=== PATIENT | female | born 1970 | race Caucasian/White ===

== ENCOUNTER → 2017-01-31 | Outpatient (POV) | payer MEDICAID, SELFPAY | PROVIDERS: Visit Provider Internal Medicine | DX: I10 Essential (primary) hypertension (principal); E78.5 Hyperlipidemia, unspecified; G47.00 Insomnia, unspecified | CPT/HCPCS: 93005 ==

== ENCOUNTER → 2017-02-02 | Outpatient (CLI) | payer MEDICAID, SELFPAY | PROVIDERS: Family Provider Emergency Medicine; Visit Provider Orthopaedic Surgery | DX: M25.562 Pain in left knee (principal) | CPT/HCPCS: 73564 ==

== ENCOUNTER → 2017-03-13 15:14 | Outpatient (POV) | payer MEDICAID, SELFPAY ==
[2017-03-13 15:30] VITALS: BP 119/73; PULSE 80; RESP 20; O2SAT 92; BMI 31.3
[2017-03-13 15:43] VITALS: BP 105/61; PULSE 75; RESP 20; O2SAT 94
--- NOTE | 2017-03-13 15:46 | HMH.PMPROC ---
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 She is doing well with her intrathecal hydromorphone/bupivacaine pain pump. She is currently going at 1.5 mg per day. Today she is complaining of some bilateral lumbar radicular symptoms. Her stimulator is not turned on. It has been an MRI mode for several weeks. I have counseled her on utilizing her stimulator and hernia back on as this will help her lumbar radicular symptoms. We will not renew her Soma and Klonopin today. This was due to previous excessive drowsiness. We will refill her pump and continue her at 1.5 mg per day. We will increase concentrations to Dilaudid 10 mg/mL and bupivacaine 10 mg per ml. Procedure Details:: Informed consent was obtained and the risks and benefits of the procedure was explained to the patient. The patient was taken to the procedure room. The pump was interrogated. The area over the pump was prepped using ChloraPrep. The pump was accessed with a 22-gauge needle. Approximately 3 mL's of the intrathecal solution was withdrawn and discarded. The pump was then refilled with 20 mL's of intrathecal 20 mL of intrathecal hydromorphone 10 mg/mL plus bupivacaine 10 mg per ml. The pump was interrogated and the infusion was continued at 1.5 mg per day. The patient tolerated the procedure well with no complication. Plan and Disposition:: We will follow-up with her in 3 months at her next pump refill. She is to turn her stimulator back on to help with her leg pain. If she has any problems or questions she is to call us in the pain clinic.
[2017-03-13 15:50] VITALS: BP 118/70; PULSE 80; RESP 20; O2SAT 93
[2017-03-13 19:08] LABS: Amphetamine/Metha Screen,Urine Negative ng/mL (<1000); Barbiturates Screen,Urine Negative ng/mL (<200); Benzodiazepines Screen,Urine Negative ng/mL (200); Cannabinoid Screen,Urine Negative ng/mL (<50); Cocaine Screen,Urine Negative ng/g (<300); Methadone Screen,Urine Negative ng/mL (<300); Opiate Screen,Urine Positive ng/mL (<300); Phencyclidine Screen,Urine Negative ng/mL (<25)
[2017-03-26 02:07] LABS: Codeine Negative (Cutoff=100); Hydrocodone Negative (Cutoff=100); Hydromorphone Positive (.); Morphine Negative (Cutoff=100)
[2017-03-26 21:18] LABS: Opiates Positive (.)
== END ==
PROVIDERS: Family Provider Emergency Medicine; PCP Emergency Medicine; Visit Provider Anesthesiology
DX: M54.16 Radiculopathy, lumbar region (principal)
CPT/HCPCS: 95991; 80305; 80361; G0480

== ENCOUNTER 2017-04-05 14:28 | Emergency (ER) | payer MEDICAID, SELFPAY ==
--- NOTE | 2017-04-05 | NVE_ITS ---
Venous Exam Indications: 729.5 Pain in limb. IMPRESSIONS 1. There is no evidence of significant Reflux. 2. No evidence of deep or superficial vein thrombosis involving the right lower extremity and left lower extremity History: Bilateral lower extremity pain. PMH: Deep vein thrombosis. Patient states she had a blood clot in right lower extremity 03/2016. She does Lovenox injections. Risk factors: Current tobacco use. Hypertension. Complete lower extremity venous duplex evaluation. Doppler flow study including spectral analysis, color and turner scale imaging. Location: Emergency department. Patient status: Emergency department. CRITICAL FINDINGS - Reported to: Sana Perkins RN ER - Read back and verified. - 04/05/17 - 17:45 - Bilateral lower extremity venous dopplers negative for DVT or SVT Tables: Venous flow and imaging: + +-------+ + Location Overall Flow properties + +-------+ + Right common femoral Patent Normal phasicity; spontaneous; normal augmentation; compressible + +-------+ + Right saphenofemoral junction Patent Compressible + +-------+ + Right profunda femoral Patent Compressible + +-------+ + Right femoral Patent Normal phasicity; spontaneous; normal augmentation; compressible; no reflux + +-------+ + Right greater saphenous Patent Normal phasicity; spontaneous; normal augmentation; compressible + +-------+ + Right popliteal Patent Normal phasicity; spontaneous; normal augmentation; compressible + +-------+ + Right posterior tibial Patent Compressible + +-------+ + Right peroneal Patent Compressible + +-------+ + Right gastrocnemius Patent Compressible + +-------+ + Right soleal Patent Compressible + +-------+ + Left common femoral Patent Normal phasicity; spontaneous; normal augmentation; compressible + +-------+ + Left saphenofemoral junction Patent Compressible + +-------+ + Left profunda femoral Patent Compressible + +-------+ + Left femoral Patent Normal phasicity; spontaneous;
[2017-04-05 14:29] VITALS: BP 113/75; PULSE 77; RESP 18; TEMP 36.9; O2SAT 97; BMI 31.3
--- NOTE | 2017-04-05 16:37 | HMH.EDGENADL ---
ED Disposition Clinical Impression: Peripheral edema Chronic leg pain Qualifiers: Laterality: bilateral Qualified Code(s): M79.604 - Pain in right leg; M79.605 - Pain in left leg; G89.29 - Other chronic pain Disposition: Home, Self-Care Condition on Discharge: Good Additional Instructions: Call your primary care provider tomorrow and arrange follow-up appointment. Referrals: Stalin Ramirez MD [Primary Care Provider] - - Critical Care Critical Care Time: No Attestation: On 04/05/17, the high probability of a clinically significant, sudden or life threatening deterioration of the following system(s) required my full and direct attention, intervention and personal management. The time I documented below is in addition to time spent performing reported procedures but includes the following listed in this critical care notation. Medical Decision Making Vital Signs: 04/05/17 14:29 04/05/17 16:42 04/05/17 16:59 Temperature 98.4 F Temperature Source Oral Pulse Rate [Right Brachial] 77 70 66 Respiratory Rate 18 16 16 Blood Pressure [Right Arm] 113/75 127/75 127/75 Blood Pressure Mean [Right Arm] 87 92 92 Blood Pressure Source [Right Arm] Automatic Cuff Automatic Cuff Blood Pressure Position [Right Arm] Sitting Sitting 02 Sat by Pulse Oximetry 97 97 99 Oxygen Delivery Method Room Air Room Air Room Air - US Data US Images: Lower Extremity ED US Reviewed: Yes: I have viewed radiologist's interpretation Findings Narrative: Negative bilaterally for DVT - Loi Inquiry Pt receiving controlled substance: No General Adult HPI - General Chief complaint: PAIN Stated complaint: pain in legs trouble walking Mode of Arrival: Ambulatory Limitations: No Limitations Description of Symptoms (Recalled from ER Triage Doc. by RN): Pt reports has been having pain in BLE since march of 2016, pt reports was treated for blood clots in RLE in march of 2016, pt reports takes takes Lovenox injections since MAR 2016. Pt reports pain is from jessy knees down to feet. - History of Present Illness HPI narrative: The patient complains of chronic pain and swelling in her legs. She says that she was diagnosed with a blood clot in her leg in March 2016. Since then she has had episodic pain in both of her legs from the knees down circumferentially along with swelling that usually lasts a couple of weeks and eventually goes away taking Motrin. She says she has mentioned to it to her primary care physician, but nothing has been done about it. She currently has symptoms again for the past 2 weeks that will not go away. She is concerned that she has a recurrence of blood clots in her legs and that she needs a Doppler. She has been treated with Lovenox 150 mg daily since she was diagnosed with a blood clot in March of last year. Has chronic back pain, seeing Dr. Torrez. Has chronic bilateral knee pain, getting injections into her right knee by orthopedics. - Related Data Home Medications Medication Instructions Recorded Confirmed amitriptyline 50 mg tablet 50 mg PO BID 02/16/17 atorvastatin 20 mg tablet 20 mg PO QDAY 02/16/17 citalopram 20 mg tablet 20 mg PO QDAY 02/16/17 enoxaparin 150 mg/mL subcutaneous 150 mg SUB-Q ONCE 02/16/17 syringe metoprolol succinate ER 50 mg 50 mg PO QDAY 02/16/17 tablet,extended release 24 hr tizanidine 4 mg tablet 4 mg PO Q8H 02/16/17 quetiapine 100 mg tablet 200 mg PO QDAY tab 03/06/17 Allergies Allergy/AdvReac Type Severity Reaction Status Date / Time butorphanol [From STADOL] Allergy Unknown UNKNOWN Unverified 02/16/17 11:14 Penicillins [PENICILLINS] Allergy Unknown UNKNOWN Unverified 02/16/17 11:14 [facility] History I have reviewed the patient's past medical history: Yes Medical History: 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
[2017-04-05 16:42] VITALS: BP 127/75; PULSE 70; RESP 16; O2SAT 97
[2017-04-05 16:59] VITALS: BP 127/75; PULSE 66; RESP 16; O2SAT 99
[2017-04-05 18:32] VITALS: BP 134/80; PULSE 73; RESP 18; TEMP 36.7; O2SAT 99
== END 2017-04-05 18:32 | disposition home or self-care (01) ==
PROVIDERS: Emergency Provider Emergency Medicine; Family Provider Emergency Medicine; PCP Emergency Medicine
DX: R60.9 Edema, unspecified (principal); M79.604 Pain in right leg; M79.605 Pain in left leg; G89.29 Other chronic pain; Z79.899 Other long term (current) drug therapy; Z88.0 Allergy status to penicillin; Z88.6 Allergy status to analgesic agent; M79.7 Fibromyalgia; F17.210 Nicotine dependence, cigarettes, uncomplicated; Z86.718 Personal history of other venous thrombosis and embolism; Z86.14 Personal history of Methicillin resistant Staphylococcus aureus infection
CPT/HCPCS: 93970; 99282

== ENCOUNTER → 2017-06-09 15:23 | Outpatient (CLI) | payer MEDICAID, SELFPAY ==
--- NOTE | 2017-06-09 15:28 | NVE_ITS ---
Venous Exam Indications: 729.5 Pain in limb. IMPRESSIONS No evidence of deep or superficial vein thrombosis involving the right lower extremity Right lower extremity venous duplex evaluation. Doppler flow study including spectral analysis, color and turner scale imaging. Location: Vascular laboratory. Patient status: Outpatient. CRITICAL FINDINGS - Reported to: ALLISON SORTO - Read back and verified. - 06/09/17 - 1545 - NONE Tables: Venous flow and imaging: + +-------+ + Location Overall Flow properties + +-------+ + Right common femoral Patent Normal phasicity; spontaneous; normal augmentation; compressible + +-------+ + Right saphenofemoral junction Patent Compressible + +-------+ + Right profunda femoral Patent Compressible + +-------+ + Right femoral Patent Normal phasicity; spontaneous; normal augmentation; compressible + +-------+ + Right greater saphenous Patent Normal phasicity; spontaneous; normal augmentation; compressible + +-------+ + Right popliteal Patent Normal phasicity; spontaneous; normal augmentation; compressible + +-------+ + Right posterior tibial Patent Compressible + +-------+ + Right peroneal Patent Compressible + +-------+ + Right gastrocnemius Patent Compressible + +-------+ + Right soleal Patent Compressible + +-------+ + (Report amended ) Electronically signed by: Mike Lopez [id number]
== END ==
PROVIDERS: PCP Nurse Practitioner Family; Visit Provider Nurse Practitioner Family
DX: M79.604 Pain in right leg (principal)
CPT/HCPCS: 93971

== ENCOUNTER → 2017-06-12 14:52 | Outpatient (POV) | payer MEDICAID, SELFPAY ==
[2017-06-12 15:05] VITALS: BP 133/64; PULSE 71; RESP 18; TEMP 36.6; O2SAT 98; BMI 39.5
--- NOTE | 2017-06-12 15:20 | P.CONS_ITS ---
[facility] Pain Management SOAP Note Subjective:: Patient is a pleasant 47-year-old white female who currently has an intrathecal hydromorphone/bupivacaine pump going at 1.5 mg per day. She is having some increasing leg pain. She is not able to have her knee surgery because of being on a blood thinner and risk of blood clots. She still has swelling in her knee. Her stimulator has not been turned on since her last MRI which was 3-4 months ago. She is having some increasing leg pain which is probably because she never turned her stimulator back on. I have encouraged her to turn her stimulator on. We will have the [employer] rep come and interrogate her stimulator to optimize coverage. We will also increase bupivacaine in her intrathecal infusion to help with her increased pain symptoms. Objective:: Alert and oriented ?3 no acute distress. Patient has an antalgic gait. Motor strength of the lower extremities is 5/5. There is no gross sensory deficit. Intrathecal hydromorphone/bupivacaine infusion currently is going at 1.5 mg per day. Assessment:: Degenerative disc disease of lumbar spine with lumbar radiculopathy symptoms. Plan:: At her next pain pump refill. We will increase her intrathecal hydromorphone/ bupivacaine infusion to 10 mg per male hydromorphone and 10 mg per male bupivacaine to go at 1.5 mg per day. Will also call the [employer] sales representative to interrogate her spinal cord stimulator to turn it back on and optimize coverage down both legs.
== END ==
PROVIDERS: Family Provider Emergency Medicine; PCP Nurse Practitioner Family; Visit Provider Anesthesiology
DX: M54.16 Radiculopathy, lumbar region (principal)
CPT/HCPCS: 99212

== ENCOUNTER → 2017-06-12 15:33 | Outpatient (CLI) | payer MEDICAID, SELFPAY ==
[2017-06-12 17:59] LABS: Amphetamine/Metha Screen,Urine Negative ng/mL (<1000); Barbiturates Screen,Urine Negative ng/mL (<200); Benzodiazepines Screen,Urine Positive ng/mL (200); Cannabinoid Screen,Urine Negative ng/mL (<50); Cocaine Screen,Urine Negative ng/g (<300); Methadone Screen,Urine Negative ng/mL (<300); Opiate Screen,Urine Positive ng/mL (<300); Phencyclidine Screen,Urine Negative ng/mL (<25)
[2017-06-21 12:18] LABS: Codeine Negative (Cutoff=100); Hydrocodone Negative (Cutoff=100); Hydromorphone Positive (.); Morphine Negative (Cutoff=100)
[2017-06-22 06:18] LABS: Opiates Positive (.)
== END ==
PROVIDERS: Visit Provider Anesthesiology
DX: Z79.899 Other long term (current) drug therapy (principal)
CPT/HCPCS: 80305; 80361; 80365; G0480

== ENCOUNTER → 2017-08-15 15:26 | Outpatient (CLI) | payer MEDICAID, SELFPAY ==
--- NOTE | 2017-08-15 15:29 | XR_ITS ---
XR knee RT 3V HISTORY: ITS.REASON: RT KNEE PAIN ORDERING PHYSICIAN: Maria Del Carmen Garibay PATIENT AGE: 47 years COMPARISON: 08/24/2016 FINDINGS: There is osteosclerosis along the lateral compartment at both the distal femur and proximal tibia with narrowing of the lateral joint space. Small spurs present at the distal femur medially and along the Aspect of the patella posteriorly. There is increased density in the suprapatellar region consistent with knee joint effusion. IMPRESSION: Osteoarthritis with small knee joint effusion. The osteosclerosis of the medial compartment is somewhat worse than when compared to the previous exam
== END ==
PROVIDERS: PCP Nurse Practitioner Family; Visit Provider Nurse Practitioner Family
DX: M25.561 Pain in right knee (principal)
CPT/HCPCS: 73562

== ENCOUNTER → 2017-11-24 09:54 | Outpatient (CLI) | payer MEDICARE, MEDICAID, SELFPAY ==
--- NOTE | 2017-11-24 10:10 | CT_ITS ---
CT head/brain wo/w con HISTORY: Headache, Altered mental status, altered level of consciousness ITS.REASON: AMS ORDERING PHYSICIAN: Maria Del Carmen Gariaby PATIENT AGE: 47 years COMPARISON: 06/22/2017 TECHNIQUE: Axial images obtained without and with contrast. Brain and bone windows reviewed. All CT scans at the facility use one or more dose reduction, viz: automated exposure control, ma/kV adjustment per patient size (including targeted exams where dose is matched to indication, i.e. head), or iterative reconstruction technique. FINDINGS: No midline shift, mass effect, intracranial hemorrhage, hydrocephalus, or extra-axial fluid collection is evident. No enhancing lesions are evident. The calvarium has an unremarkable appearance. No mastoid effusion. No sinus air-fluid levels.. IMPRESSION: Negative CT head without and with contrast. No acute finding
== END ==
PROVIDERS: Family Provider Emergency Medicine; PCP Nurse Practitioner Family; Visit Provider Nurse Practitioner Family
DX: R41.82 Altered mental status, unspecified (principal)
CPT/HCPCS: 70470; Q9967

== ENCOUNTER → 2017-12-13 10:52 | Outpatient (CLI) | payer MEDICARE, SELFPAY ==
--- NOTE | 2017-12-13 | NVE_ITS ---
Venous Exam Indications: 729.5 Pain in limb. IMPRESSIONS No evidence of deep or superficial vein thrombosis involving the left lower extremity History: Left lower extremity pain. Swelling of the left lower extremity. PMH: Deep vein thrombosis. Patient denies trauma. States left leg has been hurting for a couple of weeks. She hasa history of DVT from 2017. She isn't currently taking any blood thinners niels regular basis. She states she "gave herself a Lovenox injection last night just in case it was another blood clot." Risk factors: Current tobacco use. Hypertension. Left lower extremity venous duplex evaluation. Doppler flow study including spectral analysis, color and turner scale imaging. Location: Vascular laboratory. Patient status: Outpatient. Tables: Venous flow and imaging: + +-------+ + Location Overall Flow properties + +-------+ + Left common femoral Patent Normal phasicity; spontaneous; normal augmentation; compressible + +-------+ + Left saphenofemoral junction Patent Compressible + +-------+ + Left profunda femoral Patent Compressible + +-------+ + Left femoral Patent Normal phasicity; spontaneous; normal augmentation; compressible + +-------+ + Left greater saphenous Patent Normal phasicity; spontaneous; normal augmentation; compressible + +-------+ + Left popliteal Patent Normal phasicity; spontaneous; normal augmentation; compressible + +-------+ + Left posterior tibial Patent Compressible + +-------+ + Left peroneal Patent Compressible + +-------+ + Left gastrocnemius Patent Compressible + +-------+ + Left soleal Patent Compressible + +-------+ + (Report amended ) Electronically signed by: Karthik Malcolm [id number]
== END ==
PROVIDERS: PCP Nurse Practitioner Family; Visit Provider Nurse Practitioner Family
DX: R60.1 Generalized edema (principal)
CPT/HCPCS: 93971

== ENCOUNTER → 2018-01-08 10:15 | Outpatient (POV) | payer MEDICARE, SELFPAY ==
--- NOTE | 2018-01-08 10:43 | HMH.PMPROC ---
- Procedure Date: 01/08/18 Time: 10:45 Anesthesiologist:: Luna Crockett APRN Complications:: None Pre-procedure Diagnosis:: Degenerative disc disease lumbar spine with lumbar radiculopathy Post-procedure Diagnosis:: Same Indications for Procedure:: Patient is a 47-year-old white female who presents today for intrathecal pain pump adjustment. Patient recently seen in the ER for overdose. Patient was taken to the region and hospitalized for 8 days. Patient has been taken off a lot of her medications. Patient and I had a long discussion about adjusting her pump. During her ER stay she was decreased by half and is currently on a infusion of hydromorphone at 1 mg a day. Patient states I wish I had not come if I knew that you could not turn my pump up . I discussed with her that we will need to start having notes from a psychiatric provider in order to determine if we can continue with her pain pump therapy. We will change the patient however to periodic flow today because she lost her PTC. Physical Exam General: Alert and oriented x3, no acute distress, pleasant and cooperative, [on room air] Lungs: Resps E/U, Symmetrical chest expansion, Eyes: PERRL Musculoskeletal: Flexion and extension of lumbar spine somewhat guarded secondary to pain, deep tendon reflexes normal, strength in upper and lower extremities [5/5], slightly antalgic gait noted Neurological: speech clear, selling specialist equal, no gross sensory deficits Procedure Details:: Informed consent was obtained and the risk and benefits of the procedure were explained to the patient. The patient was taken to the procedure room where noninvasive monitoring was placed including noninvasive blood pressure cuff and pulse oximeter. Patient's pump was interrogated. The infusion rate was changed to 0.09 mg every 2 hours. The patient tolerated the procedure well. Plan and Disposition:: I will see the patient back after I received notes from her psychiatric provider. Patient's been instructed to call the office if she has any issues prior to her next appointment. This note was dictated using voice recognition software and may contain errors or omissions
[2018-01-08 10:49] VITALS: BP 113/68; PULSE 87; RESP 18; O2SAT 98; BMI 31.4
== END ==
PROVIDERS: PCP Nurse Practitioner Family; Visit Provider Clinical Nurse Specialist Family Health
DX: M51.16 Intervertebral disc disorders with radiculopathy, lumbar region (principal)
CPT/HCPCS: 62368

== ENCOUNTER → 2018-03-12 15:57 | Outpatient (CLI) | payer MEDICARE, SELFPAY ==
--- NOTE | 2018-03-12 16:02 | MM_ITS ---
MM Dig screening mamm BI w/CAD CAD Screening COMPARISON: Digital mammograms with CAD 07/03/2014 and 02/09/2011 INDICATION: Is a history of breast cancer patient maternal great aunt. There has been a previous excisional biopsy with removal of the nipple of the right breast for benign disease. TECHNIQUE: Standard CC and MLO images were obtained. R2 CAD reviewed. FINDINGS: Scattered fibroglandular densities are seen in both breasts. There has been some fatty involution of the breast parenchyma since the previous exam. There are few benign-appearing microcalcifications in each breast. There is no suspicious lesion and there are no suspicious microcalcifications. IMPRESSION: Fibrofatty parenchyma with no suspicious lesion seen BI-RADS Category: 2 Benign Finding(s) RECOMMENDED FOLLOW-UP: 1YR - 1 YEAR FOLLOW-UP (A letter has been sent to the patient regarding results of the study.)
== END ==
PROVIDERS: PCP Nurse Practitioner Family; Visit Provider Nurse Practitioner Family
DX: Z12.31 Encounter for screening mammogram for malignant neoplasm of breast (principal); N95.8 Other specified menopausal and perimenopausal disorders
CPT/HCPCS: 77067

== ENCOUNTER → 2018-03-27 14:38 | Outpatient (POV) | payer MEDICARE, SELFPAY | PROVIDERS: Visit Provider Dermatology | DX: Z00.00 Encounter for general adult medical examination without abnormal findings (principal) ==

== ENCOUNTER → 2019-06-07 15:59 | Outpatient (CLI) | payer MEDICARE, SELFPAY ==
--- NOTE | 2019-06-07 16:10 | XR_ITS ---
PROCEDURE: XR KNEE RT 3V CLINICAL INDICATION: PAIN IN RIGHT KNEE COMPARISON: KNEE3L KNEE-3 VIEWS-LT from 05/28/2016 [id number] KNEE-4 OR 5 VIEWS-RT from 08/24/2016 [id number] KNEE-4 OR 5 VIEWS-LT from 02/02/2017 [id number] XR knee RT 3V from 08/15/2017 FINDINGS: There are moderate to severe osteoarthritic changes of the lateral compartment with ccof-zm-esnoxiol osteoarthritis of the medial compartment and patellofemoral joint. There is valgus angulation of the tibia. Suprapatellar effusion also suspected. IMPRESSION: Osteoarthritis with knee joint effusion. These findings have progressed compared to 08/15/2017 Dictated by: Karthik Malcolm MD 06/08/2019 07:34 Electronically signed by Karthik Malcolm MD in [place] 06/08/2019 07:34
== END ==
PROVIDERS: PCP Nurse Practitioner; Visit Provider Nurse Practitioner Family
DX: M25.561 Pain in right knee (principal)
CPT/HCPCS: 73562

== ENCOUNTER → 2019-10-28 14:13 | Outpatient (CLI) | payer MEDICARE, SELFPAY ==
--- NOTE | 2019-10-28 14:19 | XR_ITS ---
PROCEDURE: XR SHOULDER RT MIN 2V CLINICAL INDICATION: PAIN IN USPECIFIED SHOULDER COMPARISON: CR SHOU3L [id number] VIEWS from 05/28/2016 FINDINGS: No fracture or dislocation. No lytic or blastic change. There is normal mineralization. The joint spaces are well-preserved. No significant degenerative/arthritic changes. No erosive changes evident. Other findings:None. IMPRESSION: No acute findings. Dictated by: Karthik Malcolm MD 10/28/2019 14:45 Karthik Malcolm MD in [place] 10/28/2019 14:45
== END ==
PROVIDERS: PCP Nurse Practitioner; Visit Provider Nurse Practitioner
DX: M25.511 Pain in right shoulder (principal)
CPT/HCPCS: 73030

== ENCOUNTER 2020-01-29 11:00 | Outpatient (RCR) | payer MEDICARE, SELFPAY | END 2020-02-12 16:45 | disposition home or self-care (01) | LOC: PT.CARL 11:00 | PROVIDERS: PCP Nurse Practitioner; Visit Provider Orthopaedic Surgery Adult Reconstructive Orthopaedic Surgery | DX: M17.12 Unilateral primary osteoarthritis, left knee (principal); Z96.652 Presence of left artificial knee joint | CPT/HCPCS: 97010; 97014; 97110; 97140; 97163; G0283 ==

== ENCOUNTER 2020-03-10 08:01 | Outpatient (RCR) | payer MEDICARE, SELFPAY | END 2020-04-14 13:30 | disposition home or self-care (01) | LOC: PT.CARL 08:01 | PROVIDERS: PCP Nurse Practitioner; Visit Provider Orthopaedic Surgery | DX: M76.71 Peroneal tendinitis, right leg (principal) | CPT/HCPCS: 97163 ==

== ENCOUNTER → 2020-06-12 11:02 | Outpatient (CLI) | payer MEDICARE, SELFPAY ==
--- NOTE | 2020-06-12 11:07 | MM_ITS ---
PROCEDURE INFORMATION: Exam: MG Screening 3D Mammography Exam date and time: 06/12/2020 11:07 AM Age: 50 years old Clinical indication: Encounter for screening mammogram for malignant neoplasm of breast TECHNIQUE: Imaging protocol: Screening tomosynthesis and 2D mammography including computer-aided detection (CAD) when performed. COMPARISON: 1. MG SCBI MM Dig screening mamm BI w/CAD 03/12/2018 4:26 PM 2. MG DMSB DIG MAMM-SCREEN CRISTOFER 07/03/2014 8:20 AM FINDINGS: MAMMOGRAPHY: Breast composition: The breast tissue is composed of scattered areas of fibroglandular density. Mass: None. Architectural distortion: None. Calcifications: No suspicious calcifications. Asymmetric density: None. Skin thickening: None. Axillary adenopathy: None. IMPRESSION: No mammographic evidence of malignancy. Annual screening is recommended unless otherwise clinically indicated. ASSESSMENT: BI-RADS Category 1: Negative
== END ==
PROVIDERS: PCP Nurse Practitioner; Visit Provider Nurse Practitioner
DX: Z12.31 Encounter for screening mammogram for malignant neoplasm of breast (principal)
CPT/HCPCS: 77063; 77067

== ENCOUNTER → 2021-07-16 09:45 | Outpatient (POV) | payer MEDICARE, SELFPAY ==
[2021-07-16 10:10] VITALS: BP 142/87; PULSE 86; RESP 18; TEMP 36.7; O2SAT 98; BMI 31.3
--- NOTE | 2021-07-16 10:35 | HMH.PAINSOAP ---
[facility] Pain Management SOAP Note Subjective:: This patient is a pleasant 51-year-old white female who currently has a pain pump and spinal cord stimulator in place. Both of these are nonfunctional. The patient has not been to see us in clinic since 2018. She does want both devices explanted. She is currently on Lovenox as a blood thinner. We will need to confirm her dose of Lovenox and get her off the Lovenox prior to surgery in order to explant the spinal cord stimulator with leads an intrathecal pain pump with catheter. Objective:: No change in exam patient does have an antalgic gait. Motor strength of the lower extremities is 5/5. There is no gross sensory deficit. Both stimulator and pain pump are turned off at this time. Assessment:: Degenerative disc disease of lumbar spine with lumbar radiculopathy symptoms with intrathecal pain pump and spinal cord stimulator both nonfunctioning that patient wants explanted Plan:: We will obtain approval from Dr. Oviedo in [place] to see if she can come off her anticoagulation. We will confirm the dose of Lovenox and have her off for the appropriate time prior to explant of her spinal cord stimulator and pain pump [facility] History Medical History: Reports:: Anxiety, Deep Vein Thrombosis, Depression, Heart Murmur, Hyperlipidemia, Hypertension, MRSA, Palpitations Denies:: Cancer, Diabetes Mellitus Type 1, Diabetes Mellitus Type 2, Lung Disease, Seizures *Have you ever received a pneumonia vaccine?: No *Have you received a flu vaccine this season?: Yes Other Medical History: Reports: Anemia, Arthritis, Fibromyalgia Laterality Cases: Right: Lumpectomy Other Surgeries: Yes: Hysterectomy-Partial, Tubal Ligation, Other Amputation: No Fractures: No - *Social History Smoking Status: Current every day smoker Tobacco Type: cigarettes # Packs/Day (cigarettes): 1 Alcohol Intake: never *Occupational Status:: other Housing: house Household Members: spouse *Travel in the last 8 weeks: None - Psychiatric History Pschychiatric History:: Reports:: Anxiety, Depression Family Hx:: Cancer, Heart Attack, Diabetes
== END ==
PROVIDERS: PCP Nurse Practitioner; Visit Provider Anesthesiology
DX: M51.16 Intervertebral disc disorders with radiculopathy, lumbar region (principal); T85.615A Breakdown (mechanical) of other nervous system device, implant or graft, initial encounter
CPT/HCPCS: 99212; G0463

== ENCOUNTER → 2021-08-30 10:23 | Outpatient (CLI) | payer MEDICARE, SELFPAY ==
[2021-08-30 10:48] LABS: Basophils # 0.1 K/mm3 (0-0.2); Basophils % 0.4 % (0.1-2.0); Eosinophils # 0.2 K/mm3 (0.0-0.4); Eosinophils % 1.1 % (0.1-12.0); Hematocrit 38.6 % (37.0-47.0); Hemoglobin 12.8 g/dL (12.2-16.2); Lymphocytes # 2.9 K/mm3 (0.7-4.5); Lymphocytes % 18.9 % (10-50); Mean Corpuscular HGB Conc 33.3 g/dL (31.8-35.4); Mean Corpuscular Hemoglobin 30.9 pg (27.0-31.2); Mean Corpuscular Volume 92.7 fl (81-99); Mean Platelet Volume 7.1 fl (7.4-10.4); Monocytes # 0.6 K/mm3 (0.1-1.0); Monocytes % 3.7 % (1.7-9.3); Neutrophils # 11.8 K/mm3 (1.8-7.8); Platelet Count 348 K/mm3 (142-424); Red Blood Count 4.16 M/mm3 (4.20-5.40); Red Cell Distribution Width 13.4 % (11.5-17.5); White Blood Count 15.6 K/mm3 (4.8-10.8)
[2021-08-30 10:56] LABS: MANUAL DIFFERENTIAL MANUAL DIFFERENTIAL (MANUAL DIFF)
[2021-08-30 11:09] LABS: Lymphocytes % 22 % (10-50); Monocytes % 2 % (2-9); Neutrophils % 76 % (42-76); Platelet Estimate Normal; RBC Morphology Normal; Total Cells Counted 100
[2021-08-30 12:33] LABS: Anion Gap 10.3 mEq/L (5-15); Blood Urea Nitrogen 12 mg/dl (7-17); Calcium 9.3 mg/dl (8.4-10.2); Carbon Dioxide 28 mmol/L (22.0-30.0); Chloride 105 mmol/L (98-107); Estimated Glomerular Filt Rate 65 ml/min (>60); GFR (African American) 79 ML/MIN (>60); Glucose 71 mg/dl (74-100); Potassium 4.3 mmoL/L (3.5-5.1); Sodium 139 mmol/L (136-145)
== END ==
PROVIDERS: PCP Nurse Practitioner; Visit Provider Anesthesiology
DX: Z01.818 Encounter for other preprocedural examination (principal); Z20.822 Contact with and (suspected) exposure to COVID-19
CPT/HCPCS: 36415; 80048; 85007; 85025; C9803; U0003; U0005

== ENCOUNTER 2021-08-31 07:11 | Day surgery (SDC) | payer MEDICARE, SELFPAY ==
[2021-08-31 07:52] VITALS: BP 127/78; PULSE 82; RESP 16; TEMP 36.6; O2SAT 98; BMI 31.3
--- NOTE | 2021-08-31 08:40 | HMH.ANESCL ---
[facility] Anesthesia Checklist - Patient Identification Patient Identification: Arm Band, Verbal (Name & ) - Structural Data Admitted From: Home Planned Operative Procedure/s: Pain Pump Placement Consent for Planned Operative Procedure(s) Verified: Yes Verified Documents: Surgical Consent - NPO Status Verified Time NPO: 00:00 - Additional verifications Anesthesia Reactions: No Hx Blood Transfusions: No Blood Transfusion Reaction: No - Airway Assessment C-Spine Mobility Assessed: Yes TMJ Mobility Assessed: Yes Dentition: Good Dentition - Neurological Assessment Level of Consciousness: Awake, Alert, Appropriate - Anesthesia Plan Anesthesia Risk discussed: Yes ASA Class: II Anesthesia Type: General [facility] History I have reviewed the patient's past medical history: Yes Medical History: Reports:: Anxiety, Deep Vein Thrombosis, Depression, Heart Murmur, Hyperlipidemia, Hypertension, Palpitations Denies:: Cancer, Diabetes Mellitus Type 1, Diabetes Mellitus Type 2, Internal Pacemaker, Lung Disease, MRSA, Seizures *Have you ever received a pneumonia vaccine?: No *Have you received a flu vaccine this season?: Yes Other Medical History: Reports: Anemia, Arthritis, Fibromyalgia. Denies: Blood Transfusion Reaction Anesthesia experience/problems:: none Laterality Cases: Right: Lumpectomy Other Surgeries: Yes: Hysterectomy-Partial, Tubal Ligation, Other. No: Pacemaker Amputation: No Fractures: No - *Social History Last grade of school completed: Some college Smoking Status: Current every day smoker Tobacco Type: cigarettes # Packs/Day (cigarettes): 1 Alcohol Intake: never Substance Use Type: denies use *Occupational Status:: unemployed Housing: house Household Members: spouse *Travel in the last 8 weeks: None - Psychiatric History Pschychiatric History:: Reports:: Anxiety, Depression Family Hx:: Cancer, Heart Attack, Diabetes
--- NOTE | 2021-08-31 11:36 | P.OP_ITS ---
Date of procedure: 08/31/21 Pre-op Diagnosis:: Degenerative disc disease of lumbar spine with lumbar radiculopathy symptoms with nonfunctioning spinal cord stimulator and intrathecal pain pump. Post-op Diagnosis:: Same Procedure performed:: Explant of spinal cord stimulator system and intrathecal pain pump reservoir/battery Surgeon:: Des Torrez MD [employer] ADMINISTRATOR:: Cem Alejandra Anesthesia: MAC Estimated blood loss (mL): 5 Clinical Note:: This patient is a pleasant 51-year-old white female who currently has an intrathecal pain pump and spinal cord stimulator in place. Both of these are nonfunctional. We have not seen the patient since 2018. We have only seen her once and now she wants explant. She says her pain is under control. She has been off of her Lovenox for 2 days. She presents for explant of her spinal cord stimulator leads and generator along with pain pump generator. We will leave her pain pump catheter in place because of the risk of persistent dural leak and spinal headache. Operative findings:: None Operative note:: Informed consent was obtained the risk and benefits of the procedure were explained to the patient. The patient was taken the operating room placed prone on the procedure table. She was prepped and draped in sterile fashion. C-arm fluoroscopy was used to jayjay the spinal cord stimulator leads, pain pump battery and spinal cord stimulator generator. After anesthetizing the skin and subcutaneous tissues and I made an incision over the pain pump battery. We were able to explant the battery. We tied off the catheter in the pocket. We placed Ray-Alannah's in the pocket for hemostasis. I then made an incision over the spinal cord stimulator leads and was able to explant the leads and anchors. Finally I made an incision over the spinal cord stimulator generator. The generator was explanted. The leads were removed intact. All incisions were irrigated with antibiotic solution. All incisions were then closed with 2-0 Vicryl followed by 4-0 nylon. A wound VAC was placed over all incisions and the patient was taken recovery in stable condition in an abdominal binder. Patient tolerated the procedure well with no complications. She was not given any pain medicine however she was given antibiotics postoperatively. Plan and disposition: We will follow-up with the patient in 1 week for wound check and in approximately 3 to 4 weeks for suture removal. If she has any problems or questions she is to call us back in the pain clinic. Condition: stable Disposition: PACU Complications:: None
[2021-08-31 11:40] VITALS: BP 147/77; PULSE 90; RESP 16; TEMP 36.2; O2SAT 98
[2021-08-31 11:55] VITALS: BP 146/87; PULSE 78; RESP 16; O2SAT 95
[2021-08-31 12:10] VITALS: BP 132/73; PULSE 76; RESP 16; TEMP 36.3; O2SAT 97
== END 2021-08-31 12:10 | disposition home or self-care (01) ==
LOC: OR 07:14
PROVIDERS: PCP Nurse Practitioner; Visit Provider Anesthesiology
DX: T85.113A Breakdown (mechanical) of implanted electronic neurostimulator, generator, initial encounter (principal); T85.112A Breakdown (mechanical) of implanted electronic neurostimulator of spinal cord electrode (lead), initial encounter; T85.615A Breakdown (mechanical) of other nervous system device, implant or graft, initial encounter; M51.16 Intervertebral disc disorders with radiculopathy, lumbar region; I10 Essential (primary) hypertension; E78.5 Hyperlipidemia, unspecified; F41.9 Anxiety disorder, unspecified; F32.A Depression, unspecified; Z72.0 Tobacco use; Z79.899 Other long term (current) drug therapy
CPT/HCPCS: 62365; 63661; 63688; 96374

== ENCOUNTER 2021-09-04 10:09 | Emergency (ER) | payer MEDICARE, SELFPAY ==
[2021-09-04 10:09] VITALS: BP 121/63; PULSE 94; RESP 16; TEMP 36.7; O2SAT 96; BMI 31.3
--- NOTE | 2021-09-04 10:27 | HMH.EDGENADL ---
ED Disposition Clinical Impression: Encounter for post surgical wound check Disposition: Home, Self-Care Condition on Discharge: Good Additional Instructions: You have been evaluated for a wound VAC complication. It now appears to have a good seal and is functioning appropriately. Please keep the wound VAC in place. Follow-up with Dr. Torrez as scheduled. Return to the emergency department for any new or worsening symptoms, pain, drainage, other concerns Referrals: Charlee Emmanuel APRN [Primary Care Provider] - Time of Disposition: 10:32 - Critical Care Critical Care Time: No Attestation: On , the high probability of a clinically significant, sudden or life threatening deterioration of the following system(s) required my full and direct attention, intervention and personal management. The time I documented below is in addition to time spent performing reported procedures but includes the following listed in this critical care notation. Medical Decision Making - Medical Records Medical records reviewed: Yes: I reviewed the patient's medical records. - Loi Inquiry Pt receiving controlled substance: No Medical Decision Narrative: In summary this is a 51-year-old female presenting to the emergency department with a wound VAC complication. Patient clinically stable on arrival. Vital signs within normal limits. Most of the wound VAC is intact. However the suction and tubing has come detached from the sponge. It appears like there was a large Tegaderm covering the apparatus. Now there is a hole in the Tegaderm. Suction catheter cleaned with alcohol prep. Affixed to the sponge material. Tegaderm dressings applied on top. When the wound VAC was turned on, appeared to have good suction. Patient counseled to continue using the VAC as instructed by Dr. Torrez. Given return precautions. Stable for discharge. General Adult HPI - General Stated complaint: drain was pulled out Time Seen by Provider: 09/04/21 10:27 Mode of Arrival: Ambulatory Source of Information: Patient Limitations: No Limitations - History of Present Illness HPI narrative: 51-year-old female presenting to the emergency department with a wound VAC complication. Last night, the suction catheter to her wound VAC came dislodged from the purple sponge. The tubing simply pulled on a piece of furniture and fell off. It is now entirely detached. She had a wound VAC placed on Monday after removal of a spinal stimulator with Dr. Torrez. Did well postoperatively. Has had little to no drainage from the wound VAC. Denies back pain, fevers, chills, nausea, vomiting. Said her spinal stimulator had not been used in over 4 years. She is scheduled to see Dr. Torrez in follow-up on Monday, 3 days from now - Related Data Home Medications Medication Instructions Recorded Confirmed atorvastatin 20 mg tablet 20 mg PO QDAY 02/16/17 08/31/21 enoxaparin 150 mg/mL subcutaneous 150 mg SUB-Q ONCE 02/16/17 08/31/21 syringe Gabapentin [Gabapentin 300mg Cap] 300 mg PO HS 12/18/17 08/31/21 Tizanidine HCl [Zanaflex 4mg 4 mg PO BID 12/18/17 08/31/21 tablet] Amitriptyline HCl 150 mg PO DAILY 06/25/18 08/31/21 estradioL [Estrace 1mg tablet] 2 mg PO DAILY 06/25/18 08/31/21 Citalopram Hydrobromide 40 mg PO DAILY 08/31/21 08/31/21 [Citalopram 40mg Tablet] Quetiapine Fumarate [Seroquel 100 mg PO DAILY 08/31/21 08/31/21 100mg tablet] buPROPion HCL [Bupropion HCl Sr] 150 mg PO TID 08/31/21 08/31/21 Previous Rx's Medication Instructions Recorded Sulfamethoxazole/Trimethoprim 1 each PO BID #14 tab 08/31/21 [Bactrim DS tablet] Allergies Allergy/AdvReac Type Severity Reaction Status Date / Time butorphanol [From STADOL] Allergy Unknown UNKNOWN Verified 12/18/17 06:40 Penicillins [PENICILLINS] Allergy Unknown UNKNOWN Verified 12/18/17 06:40 [facility] History - Hepatitis A Screen Attestation statement:: This patient has been screened for Hepatitis A
[2021-09-04 10:42] VITALS: BP 121/63; PULSE 94; RESP 16; TEMP 36.8; O2SAT 96
== END 2021-09-04 10:42 | disposition home or self-care (01) ==
LOC: ER 11:06
PROVIDERS: Emergency Provider Emergency Medicine; PCP Nurse Practitioner
DX: M96.89 Other intraoperative and postprocedural complications and disorders of the musculoskeletal system (principal)
CPT/HCPCS: 99282

== ENCOUNTER → 2021-09-07 11:28 | Outpatient (POV) | payer MEDICARE, SELFPAY ==
--- NOTE | 2021-09-07 12:07 | HMH.PAINSOAP ---
[facility] Pain Management SOAP Note Subjective:: Patient is a pleasant 51-year-old female who presents today for postop follow-up from a pain pump and spinal cord stimulator removal on August 31, 2021. We are currently treating the patient for degenerative disc disease of lumbar spine with lumbar radiculopathy symptoms with intrathecal pain pump and spinal cord stimulator both nonfunctioning. Patient denies any problems from this procedure. Today the patient rates her pain a 0 out of 10. Patient was a previous patient from 2018. She does state that she has had increasing pain over the last 2 years in her right shoulder that sometimes radiates to her wrist. Patient denies any trauma or injury to the site. She describes this as a numbing tingling sensation. She was scheduled for a MRI of her shoulder in [place] however she states that she needs a new order for this. She states it is worse with increased activity. Patient has tried dggo-bjo-lhoejxi medications with minimal relief. She is interested in future injective therapy depending on her MRI results. Her Loi is [id number]. It has been reviewed and is appropriate. Review of Systems: General: No recent weight changes, no fever, no sleep disturbances Respiratory: No cough, no shortness of air, no recurring pulmonary infections Cardiovascular/peripheral vascular: No chest pain, no palpitations, no edema, no shortness of breath Gastrointestinal: No new onset incontinence, normal bowel movements reported Genitourinary: No new onset incontinence Musculoskeletal: Right shoulder pain Psychiatric: [Normal mood/affect] Neurological: [Denies weakness in extremities], [denies balance issues] Objective:: Physical Exam: General: Alert and oriented x3, no acute distress, pleasant and cooperative Lungs: Respirations even and unlabored, symmetrical chest expansion Eyes: PERRL Musculoskeletal: Flexion and extension of right shoulder somewhat guarded secondary to pain, [antalgic gait noted] Neurological: Speech clear, no gross sensory deficit Assessment:: Degenerative disc disease of lumbar spine with lumbar radiculopathy symptoms with intrathecal pain pump and spinal cord stimulator both nonfunctioning, right shoulder pain Plan:: Patient's incision sites are dry, intact, well approximated with no erythema at today's visit. I will order a MRI with contrast of her right shoulder. Pending the results of this imaging we will discuss possible injections in the future. I have mentioned to the patient regarding trigger point injections of the right shoulder. I have also discussed with the patient regarding possibly doing physical therapy and compounding cream. I have instructed the patient to continue restrictions of no tub bathing, swimming, bending/twisting, weightbearing, etc. We will schedule the patient for a 2-week follow-up. Patient will return to clinic in 2 weeks for follow-up and suture removal. Has been instructed to contact the clinic with any concerns before the next appointment. Dr. Torrez has reviewed this note and agrees with this plan of care. This note is dictated using voice recognition software and may contain errors or omissions. [facility] History I have reviewed the patient's past medical history: Yes Medical History: Reports:: Anxiety, Deep Vein Thrombosis, Depression, Heart Murmur, Hyperlipidemia, Hypertension, Palpitations Denies:: Cancer, Diabetes Mellitus Type 1, Diabetes Mellitus Type 2, Internal Pacemaker, Lung Disease, MRSA, Seizures *Have you ever received a pneumonia vaccine?: No *Have you received a flu vaccine this season?: Yes Other Medical History: Reports: Anemia, Arthritis, Fibromyalgia. Denies: Blood Transfusion Reaction Laterality Cases: Right: Lumpectomy Other Surgeries: Yes: Hysterectomy-Partial, Tubal Ligation, Other. No: Pacemaker Amputation: No Fractures: No - *Social History Smoking Status: Current every day smoker Tobacco Type: cigarettes # Packs/Day (cigarettes)
[2021-09-07 12:41] VITALS: BP 140/98; PULSE 93; RESP 17; TEMP 36.6; O2SAT 98; BMI 28.1
== END ==
PROVIDERS: PCP Nurse Practitioner; Visit Provider Nurse Anesthetist, Certified Registered
DX: M51.16 Intervertebral disc disorders with radiculopathy, lumbar region (principal); M25.511 Pain in right shoulder; Z72.0 Tobacco use
CPT/HCPCS: 99212; G0463

== ENCOUNTER → 2021-09-15 12:58 | Outpatient (CLI) | payer MEDICARE, SELFPAY ==
--- NOTE | 2021-09-15 13:09 | MR_ITS ---
FINAL REPORT CLINICAL HISTORY: RIGHT SHOULDER PAIN right shoulder pain pops and cracks limited strength x 1.5 years no recent injury or trauma 18 ml prohance given FINDINGS: Multiple planar MR imaging of the right shoulder was performed with and without contrast. The visualized bony structures are intact without evidence of fracture or bone marrow edema. There is a high-grade full-thickness tear of the distal supraspinatus tendon. A small portion of the anterior tendon is intact. There is a complete tear of the infraspinatus tendon. There is moderate supraspinatus and mild infraspinatus muscle atrophy. There is superior subluxation of the humerus. There is a large amount of fluid in the joint and the subacromial/subdeltoid bursa. There is moderate AC joint degenerative change. There is diffuse labral degeneration. There is contrast enhancement of the AC joint capsule which is likely reactive. The proximal long head of the biceps tendon is intact. IMPRESSION: Complete tear of the infraspinatus tendon with high-grade full-thickness tear of the distal supraspinatus tendon. Moderate AC joint arthrosis. Diffuse labral degeneration. Reviewed, Interpreted and Dictated by Mario Couch III, MD Transcribed by Asif Sung Authenticated and [facility]
== END ==
PROVIDERS: PCP Nurse Practitioner; Visit Provider Nurse Anesthetist, Certified Registered
DX: M25.511 Pain in right shoulder (principal)
CPT/HCPCS: 73223; A9576

== ENCOUNTER → 2021-09-21 10:38 | Outpatient (POV) | payer MEDICARE, SELFPAY ==
--- NOTE | 2021-09-21 11:33 | HMH.PAINSOAP ---
[facility] Pain Management SOAP Note Subjective:: Patient is a pleasant 51-year-old female who presents today for postop follow-up from a pain pump and spinal cord stimulator removal on August 31, 2021. We are currently treating the patient for degenerative disc disease of lumbar spine with lumbar radiculopathy symptoms with intrathecal pain pump and spinal cord stimulator both nonfunctioning. Patient denies any problems from this procedure. Today the patient rates her pain a 0 out of 10. Patient was a previous patient from 2018. She does state that she has had increasing pain over the last 2 years in her right shoulder that sometimes radiates to her wrist. Patient denies any trauma or injury to the site. She describes this as a numbing tingling sensation that is worse with activity. Patient has had a MRI of her right shoulder and would like to know her results at today's visit. Her Loi is [id number]. It has been reviewed and is appropriate. Review of Systems: General: No recent weight changes, no fever, no sleep disturbances Respiratory: No cough, no shortness of air, no recurring pulmonary infections Cardiovascular/peripheral vascular: No chest pain, no palpitations, no edema, no shortness of breath Gastrointestinal: No new onset incontinence, normal bowel movements reported Genitourinary: No new onset incontinence Musculoskeletal: Right shoulder pain Psychiatric: [Normal mood/affect] Neurological: [Denies weakness in extremities], [denies balance issues] Objective:: Physical Exam: General: Alert and oriented x3, no acute distress, pleasant and cooperative Lungs: Respirations even and unlabored, symmetrical chest expansion Eyes: PERRL Musculoskeletal: Flexion and extension of right shoulder somewhat guarded secondary to pain, [antalgic gait noted] Neurological: Speech clear, no gross sensory deficit Skin: Surgical incision sites x3, well approximated, dry, intact, minimal erythema noted FINAL REPORT CLINICAL HISTORY: RIGHT SHOULDER PAIN right shoulder pain pops and cracks limited strength x 1.5 years no recent injury or trauma 18 ml prohance given FINDINGS: Multiple planar MR imaging of the right shoulder was performed with and without contrast. The visualized bony structures are intact without evidence of fracture or bone marrow edema. There is a high-grade full-thickness tear of the distal supraspinatus tendon. A small portion of the anterior tendon is intact. There is a complete tear of the infraspinatus tendon. There is moderate supraspinatus and mild infraspinatus muscle atrophy. There is superior subluxation of the humerus. There is a large amount of fluid in the joint and the subacromial/subdeltoid bursa. There is moderate AC joint degenerative change. There is diffuse labral degeneration. There is contrast enhancement of the AC joint capsule which is likely reactive. The proximal long head of the biceps tendon is intact. IMPRESSION: Complete tear of the infraspinatus tendon with high-grade full-thickness tear of the distal supraspinatus tendon. Moderate AC joint arthrosis. Diffuse labral degeneration. Reviewed, Interpreted and Dictated by Mario Couch III, MD Transcribed by Asif Sung Authenticated and [facility] Assessment:: Degenerative disc disease of lumbar spine with lumbar radiculopathy symptoms with intrathecal pain pump and spinal cord stimulator both nonfunctioning, right shoulder pain Plan:: Patient's incision sites are dry, intact, well approximated with no erythema at today's visit. Sutures were removed and Steri-Strips applied at today's appointment. MRI results of patient's right shoulder were reviewed. Findings showed a complete tear of the infraspinatus tendon with high-grade full-thickness tear of the distal supraspinatus tendon, Moderate AC joint arthrosis and Diffuse labral degeneration. I will
[2021-09-21 11:46] VITALS: BP 124/76; PULSE 100; TEMP 36.6; O2SAT 99; BMI 31.3
== END ==
PROVIDERS: PCP Nurse Practitioner; Visit Provider Nurse Anesthetist, Certified Registered
DX: M51.16 Intervertebral disc disorders with radiculopathy, lumbar region (principal); M25.511 Pain in right shoulder
CPT/HCPCS: 99212; G0463

== ENCOUNTER 2021-10-19 07:58 | Outpatient (RCR) | payer MEDICARE, SELFPAY | END 2021-11-29 10:40 | disposition home or self-care (01) | LOC: PT.CARL 07:58 | PROVIDERS: PCP Nurse Practitioner; Visit Provider Orthopaedic Surgery Adult Reconstructive Orthopaedic Surgery | DX: M75.121 Complete rotator cuff tear or rupture of right shoulder, not specified as traumatic (principal) | CPT/HCPCS: 97163 ==

== ENCOUNTER → 2021-11-23 12:52 | Outpatient (CLI) | payer MEDICARE, SELFPAY | PROVIDERS: PCP Nurse Practitioner; Visit Provider Nurse Practitioner | DX: R92.8 Other abnormal and inconclusive findings on diagnostic imaging of breast (principal); R92.2 Inconclusive mammogram ==

== ENCOUNTER → 2021-12-07 13:27 | Outpatient (CLI) | payer MEDICARE, SELFPAY ==
--- NOTE | 2021-12-07 13:30 | MM_ITS ---
PROCEDURE INFORMATION: Exam: US Right Breast, Complete US Left Breast, Complete MG Bilateral Screening 3D Mammography Exam date and time: 12/07/2021 2:27 PM Age: 51 years old Clinical indication: Screening examination; Right nipple removed 2010 TECHNIQUE: Imaging protocol: Complete ultrasound of all four quadrants of the Right breast and the retroareolar regions, including ultrasound of the axilla when performed. Complete ultrasound of all four quadrants of the Left breast and the retroareolar regions, including ultrasound of the axilla when performed. Bilateral Screening tomosynthesis and 2D mammography including computer-aided detection (CAD) when performed. COMPARISON: MG MM DIG SCREENING MAMM BI W/CAD 12/07/2021 1:46 PM FINDINGS: MAMMOGRAPHY: Breast composition: Breast composition: There are scattered areas of fibroglandular density. Mass: None. Architectural distortion: None. Calcifications: None. Asymmetric density: None. Skin thickening: None. Axillary adenopathy: None. ULTRASOUND: Right solid masses: None. Right cystic masses: Minimal subcentimeter cystic change is present in the right breast. Right architectural distortion: None. Right acoustical shadowing: None. Right skin thickening: None. Right axillary adenopathy: None. Left solid masses: None. Left cystic masses: Minimal subcentimeter cystic change is present in the left breast. Left architectural distortion: None. Left acoustical shadowing: None. Left skin thickening: None. Left axillary adenopathy: None. IMPRESSION: No mammographic or sonographic evidence of malignancy. Annual screening is recommended unless otherwise clinically indicated. ASSESSMENT: BI-RADS Category 2: Benign
== END ==
PROVIDERS: PCP Nurse Practitioner; Visit Provider Nurse Practitioner
DX: Z12.31 Encounter for screening mammogram for malignant neoplasm of breast (principal); R92.8 Other abnormal and inconclusive findings on diagnostic imaging of breast
CPT/HCPCS: 76641; 77063; 77067

== ENCOUNTER 2022-03-14 08:00 | Outpatient (RCR) | payer MEDICARE, SELFPAY | END 2022-04-05 08:15 | disposition home or self-care (01) | LOC: PT 08:00 | PROVIDERS: PCP Nurse Practitioner; Visit Provider Orthopaedic Surgery Adult Reconstructive Orthopaedic Surgery | DX: M75.121 Complete rotator cuff tear or rupture of right shoulder, not specified as traumatic (principal); Z96.611 Presence of right artificial shoulder joint | CPT/HCPCS: 97010; 97014; 97110; 97140; 97163; 97164; G0283 ==

== ENCOUNTER → 2022-10-12 07:57 | Outpatient (POV) | payer MEDICARE, SELFPAY ==
[2022-10-12 08:52] VITALS: BP 115/69; PULSE 82; RESP 18; O2SAT 97; BMI 24.3
--- NOTE | 2022-10-12 11:28 | EXP.PAIN.SOA ---
[facility] Pain Management SOAP Note Subjective:: Patient is a pleasant 52-year-old female who presents today for follow-up. We are currently treating the patient for degenerative disc disease of lumbar spine with lumbar radiculopathy symptoms, status post intrathecal pain pump and spinal cord stimulator explant due to nonfunctioning, right shoulder pain. Patient rates her pain today a 5 out of 10. Patient states over the last 3 months she has been having worsening pain in her left buttocks and hip as well as her right side however it is not as bad. Patient does describe this is an aching, throbbing sensation that is worse with increased activity. She states she cannot tolerate prolonged sitting or standing due to the pain. She states it does interfere with ability to perform activities of daily living such as cooking and cleaning. Patient is currently prescribes Soma 350 mg 3 times a day and gabapentin 300 mg 3 times a day from her primary care doctor. Patient denies any side effects from these medications. Patient does have a history of previous lumbar fusion. Her Loi is [id number]. Its been reviewed and appropriate. Review of Systems: General: No recent weight changes, no fever, no sleep disturbances Respiratory: No cough, no shortness of air, no recurring pulmonary infections Cardiovascular/peripheral vascular: No chest pain, no palpitations, no edema, no shortness of breath Gastrointestinal: No new onset incontinence, normal bowel movements reported Genitourinary: No new onset incontinence Musculoskeletal: Low back pain, bilateral hip pain Psychiatric: [Normal mood/affect] Neurological: [Denies weakness in extremities], [denies balance issues] Objective:: Physical Exam: General: Alert and oriented x3, no acute distress, pleasant and cooperative Lungs: Respirations even and unlabored, symmetrical chest expansion Eyes: PERRL Musculoskeletal: Flexion and extension of lumbar [spine] somewhat guarded secondary to pain, [antalgic gait noted] extreme point tenderness along left SI with positive point tenderness at right SI, bilateral positive Guy's, Luana's, Gaenslen's, compression and distraction exam Neurological: Speech clear, no gross sensory deficit Assessment:: Patient is experiencing worsening pain in her low back with radiating symptoms to her bilateral hips. Patient did have limited range of motion of her lumbar spine along with extreme point tenderness at her left SI and positive point tenderness at her right SI and a positive bilateral Guy's, Luana's, Gaenslen's, compression and distraction exam. I have discussed with the patient that she may benefit from bilateral SI injections. Risk and benefits were explained to the patient and she would like to proceed forward with this plan of care. I will also order the patient a compounded cream. Patient has tried and failed conservative therapy such as oral medication, heat and ice, topicals, physical therapy, at home stretching exercise for longer than 12 weeks. Patient will be scheduled for bilateral SI injections. Patient has been instructed to contact the clinic with any concerns before the next appointment. Dr. Torrez has reviewed this note and agrees with this plan of care. This note was dictated using voice recognition software and make contain errors or omissions. [facility] Disclaimer: The information contained in this section may have been updated after the patient was seen, as this information can be updated by other users. Social History Smoking Status: Current every day smoker tobacco type: cigarettes packs per day: 1 second hand exposure: Yes alcohol intake: never substance use type: denies use current occupational status: other Travel in the last 8 weeks: None household members: spouse housing: house current occupational exposures/hazards: No caffeine: Yes
== END ==
PROVIDERS: Visit Provider Nurse Practitioner Family
DX: M51.16 Intervertebral disc disorders with radiculopathy, lumbar region (principal); M25.511 Pain in right shoulder; M46.1 Sacroiliitis, not elsewhere classified
CPT/HCPCS: 99212; G0463

== ENCOUNTER 2022-10-25 07:52 | Day surgery (SDC) | payer MEDICARE, SELFPAY ==
[2022-10-25 08:13] VITALS: BP 105/68; PULSE 56; RESP 16; TEMP 37.1; O2SAT 94; BMI 23.5
[2022-10-25 08:25] VITALS: BP 104/58; PULSE 77; RESP 18; O2SAT 97
[2022-10-25 08:26] VITALS: BP 104/58; PULSE 73; RESP 18; O2SAT 97
--- NOTE | 2022-10-25 08:28 | P.PCN_ITS ---
Procedure Date: 10/25/22 Time: 08:20 Anesthesiologist:: Frederick Nielsen CRNA Complications:: None Pre-procedure Diagnosis:: Bilateral sacroiliitis Post-procedure Diagnosis:: Same. Indications for Procedure:: Very pleasant 52-year-old female comes our clinic today for repeat bilateral sacroiliac joint injection. Patient has extreme point tenderness over the bilateral sacroiliac joints upon examination. She rates her pain 7/10. Patient describes the pain as constant, dull, aching. She reports having difficulty transitioning from sitting to standing. Difficulty with ambulation due to posterior hip pain bilaterally. Procedure Details:: Procedure: Bilateral sacroiliac joint injections under fluoroscopy Informed consent was obtained and the risks and benefits of the procedure were explained to the patient.~ The patient was taken to the procedure room and noninvasive monitors were placed including a noninvasive blood pressure cuff and pulse oximeter.~ The patient was placed prone on the procedure table. Both hips were cleansed using Betadine as a cleansing solution. C-arm fluoroscopy was used to view the right sacroiliac joint.~ The skin and subcutaneous tissues were anesthetized using lidocaine 1.5% and a 25-gauge needle.~ After this, a 22-gauge spinal needle was inserted under fluoroscopic guidance into the inferior aspect of the right sacroiliac joint.~ Omnipaque dye was injected and good spread was seen throughout the joint.~ After this, approximately 5 mL of bupivacaine, 0.25% and Depo-Medrol, 40 mg was incrementally injected into the right sacroiliac joint. We then moved to the left sacroiliac joint.~ The skin and subcutaneous tissues were anesthetized using lidocaine 1.5% and a 25-gauge needle.~ After this, a 22- gauge spinal needle was inserted under fluoroscopic guidance into the inferior aspect of the left sacroiliac joint.~ Omnipaque dye was injected and good spread was seen throughout the joint. After this, approximately 5 mL of bupivacaine, 0.25% and Depo-Medrol, 40 mg was incrementally injected into the left sacroiliac joint.~ The patient tolerated the procedure well with no complications. The patient was observed in the Pain Clinic and then was discharged home neurologically intact. Plan and Disposition:: Patient was discharged without incident.
[2022-10-25 08:36] VITALS: BP 121/75; PULSE 80; RESP 20
== END 2022-10-25 08:37 | disposition home or self-care (01) ==
PROVIDERS: PCP Nurse Practitioner; Visit Provider Nurse Anesthetist, Certified Registered
DX: M46.1 Sacroiliitis, not elsewhere classified (principal)
CPT/HCPCS: 27096; G0260; J1040

== ENCOUNTER → 2022-11-09 08:21 | Outpatient (POV) | payer MEDICARE, SELFPAY ==
--- NOTE | 2022-11-09 09:29 | EXP.PAIN.SOA ---
[facility] Pain Management SOAP Note Subjective:: Patient is a pleasant 52-year-old female who presents today for follow-up of bilateral SI injections on 10/25/2022. We are currently treating the patient for degenerative disc disease of lumbar spine with lumbar radiculopathy symptoms, sacroiliitis, status post intrathecal pain pump and spinal cord stimulator explant due to nonfunctioning, right shoulder pain. Today she rates her pain a 6 out of 10. Patient denies any new trauma or injury. She states that she had 100% improvement from her diagnostic SI injections. She states she was able to increase her activity with decreased pain symptoms and able to move around easier with improved function. She does state that the relief did only last approximately 3 days and that she is back to her baseline today. Patient is currently managed with Soma 350 mg 3 times a day, gabapentin 300 mg 3 times a day from her primary care doctor. Patient denies any side effects. She has had a previous lumbar fusion. Her Loi is [id number]. Its been reviewed and appropriate. Review of Systems: General: No recent weight changes, no fever, no sleep disturbances Respiratory: No cough, no shortness of air, no recurring pulmonary infections Cardiovascular/peripheral vascular: No chest pain, no palpitations, no edema, no shortness of breath Gastrointestinal: No new onset incontinence, normal bowel movements reported Genitourinary: No new onset incontinence Musculoskeletal: Low back, bilateral hip pain Psychiatric: [Normal mood/affect] Neurological: [Denies weakness in extremities], [denies balance issues] Objective:: Physical Exam: General: Alert and oriented x3, no acute distress, pleasant and cooperative Lungs: Respirations even and unlabored, symmetrical chest expansion Eyes: PERRL Musculoskeletal: Flexion and extension of lumbar [spine] somewhat guarded secondary to pain, [antalgic gait noted] point tenderness along bilateral SIs with positive bilateral Guy's, Luana's, Gaenslen's, compression and distraction exam Neurological: Speech clear, no gross sensory deficit Assessment:: Degenerative disc disease of lumbar spine with lumbar radiculopathy symptoms, sacroiliitis, status post intrathecal pain pump and spinal cord stimulator explant due to nonfunctioning status, right shoulder pain Plan:: Patient did have 100% improvement following her diagnostic SI injections. Today she is experiencing worsening pain along her low back and bilateral hips with limited range of motion and positive bilateral Guy's, Luana's, Gaenslen's, compression and distraction exam along with point tenderness at her bilateral SIs. I have discussed with the patient that she may benefit from a repeat bilateral SI injections. Risk and benefits were explained to the patient and she would like to proceed forward with this plan of care. I will also order the patient a compounded cream. Patient will be scheduled for her second set of diagnostic bilateral SI injections. Patient has been instructed to contact the clinic with any concerns before the next appointment. Dr. Torrez has reviewed this note and agrees with this plan of care. This note was dictated using voice recognition software and make contain errors or omissions. [facility] Disclaimer: The information contained in this section may have been updated after the patient was seen, as this information can be updated by other users. Medical History (Updated 10/25/22 @ 08:15 by Chevy Rees RN) No significant past medical history Surgical History (Updated 10/25/22 @ 08:16 by Chevy Rees RN) History of knee replacement Family History (Updated 10/25/22 @ 08:15 by Chevy Rees RN) Other Colon cancer Family history of hypertension Family history of myocardial infarction Social History (Updated 10/25/22 @ 08:16 by Chevy Rees RN) Smoking Status: Current every day smoker tobacco type: cigarettes packs per day: 1 second shay
[2022-11-09 11:08] VITALS: BP 110/69; PULSE 84; RESP 20; O2SAT 97; BMI 23.5
== END ==
PROVIDERS: PCP Nurse Practitioner; Visit Provider Nurse Practitioner Family
DX: M51.16 Intervertebral disc disorders with radiculopathy, lumbar region (principal); M46.1 Sacroiliitis, not elsewhere classified; M25.511 Pain in right shoulder
CPT/HCPCS: 99212; G0463

== ENCOUNTER 2022-11-22 07:41 | Day surgery (SDC) | payer MEDICARE, SELFPAY ==
--- OUTSIDE RECORDS SUMMARY | 2022-11-22 07:44 | XMS_ITS | Continuity of Care Document ---
Author Name Unknown Address [address], [place] [id number] [facility] Phone Care Team Providers Care Turfgrass Technician Name Role Phone AGAPITO MEDINA Primary Care AGAPITO MEDINA Unavailable AGAPITO MEDINA Primary Attending [phone] AGAPITO MEDINA Admitting RESULTS Patient: REVA HERNANDEZ Date of : May [birth year] LABORATORY RESULTS Information is not available LABORATORY NARRATIVE RESULTS Information is not available RADIOLOGY RESULTS ORDER 100: US SOFT TISSUE LI LUCIUS (LOINC: [id number]) ORDER DATE: November 08, 2022 2:08:00 PM [facility] PATHOLOGY NARRATIVE RESULTS Information is not available MICROBIOLOGY RESULTS No Micro Labs/Results Exist for Patient BLOOD ADMIN RESULTS Information is not available MEDICATIONS HOME MEDICATIONS Status RXNORM Medication Dose Route Frequency Dates Comments R eported By Updated By Drug Treatment Unknown DISCHARGE MEDICATIONS Status RXNORM Medication Dose Route Frequency Dates Comments Physic yo Updated By No Discharge Medication Info rmation Available INPATIENT MEDICATIONS Status RXNORM Medication Dose Rou
--- OUTSIDE RECORDS SUMMARY | 2022-11-22 07:44 | XMS_ITS | Continuity of Care Document ---
Author Name Unknown Address [address] [place] [address], [place] [id number] Organization [facility] Phone Care Team Providers Care Manager Statistical Name Role Phone AGAPITO MEDINA Primary Care AGAPITO MEDINA Unavailable AGAPITO MEDINA Primary Attending AGAPITO MEDINA Admitting TREATMENT PLAN DISCHARGE MEDICATIONS Status RXNORM Medication Dose Route Frequency Dates Comments U pdated By Patient discharge medication information is not available. PATIENT OPEN ORDERS Code System Description Frequency Occurrence s Priority [place] [id number] [facility] Head and neck soft tissue ONE TIME 0 Routine November 08, 2022 2:06:00 PM [facility] ADAM PENG METAL TESTER [id number] on November 08, 2022 2:08:00 PM [facility] SCHEDULED PROCEDURES Code System Description Status Scheduled Date Upd ated By Patient scheduled procedure information is not available. MEDICATIONS HOME MEDICATIONS Status RXNORM Medication Dose Route Frequency Dates Comments R eported By Updated By Drug Treatment Unknown DISCHARGE MEDICATIONS Status RXNORM Medication Dose Route Frequency Dates Comments Physic yo Updated By No Discharge Medication Info rmation Available INPATIENT MEDICATIONS Status RXNORM Medication Dose Route Frequency Rate Quantity Dates Comments Physician Updated By
[2022-11-22 07:57] VITALS: BP 90/63; PULSE 63; RESP 18; TEMP 36.5; O2SAT 97; BMI 23.1
[2022-11-22 08:39] VITALS: BP 108/71; PULSE 58; RESP 73; TEMP 36.5; O2SAT 95
--- NOTE | 2022-11-22 08:53 | P.PCN_ITS ---
Procedure Date: 11/22/22 Time: 08:30 Anesthesiologist:: Frederick Nielsen CRNA Complications:: None Pre-procedure Diagnosis:: Bilateral sacroiliitis Post-procedure Diagnosis:: Same. Indications for Procedure:: Patient is a very pleasant 52-year-old female that comes our clinic today for bilateral sacroiliac joint injections. Patient reports 2 to 3 days of significant improvement terms of her overall low lumbar as well as bilateral posterior hip pain with her first round of injections. I discussed in detail with the patient regarding repeat injections. I informed the patient if in fact this injection does not render more relief we may need to talk about a caudal epidural steroid injection. Answered patient's questions. She rates her pain today 10/23. Procedure Details:: Procedure: Bilateral sacroiliac joint injections under fluoroscopy Informed consent was obtained and the risks and benefits of the procedure were explained to the patient.~ The patient was taken to the procedure room and noninvasive monitors were placed including a noninvasive blood pressure cuff and pulse oximeter.~ The patient was placed prone on the procedure table. Both hips were cleansed using Betadine as a cleansing solution. C-arm fluoroscopy was used to view the right sacroiliac joint.~ The skin and subcutaneous tissues were anesthetized using lidocaine 1.5% and a 25-gauge needle.~ After this, a 22-gauge spinal needle was inserted under fluoroscopic guidance into the inferior aspect of the right sacroiliac joint.~ Omnipaque dye was injected and good spread was seen throughout the joint.~ After this, approximately 5 mL of bupivacaine, 0.25% and Depo-Medrol, 40 mg was incrementally injected into the right sacroiliac joint. We then moved to the left sacroiliac joint.~ The skin and subcutaneous tissues were anesthetized using lidocaine 1.5% and a 25-gauge needle.~ After this, a 22- gauge spinal needle was inserted under fluoroscopic guidance into the inferior aspect of the left sacroiliac joint.~ Omnipaque dye was injected and good spread was seen throughout the joint. After this, approximately 5 mL of bupivacaine, 0.25% and Depo-Medrol, 40 mg was incrementally injected into the left sacroiliac joint.~ The patient tolerated the procedure well with no complications. The patient was observed in the Pain Clinic and then was discharged home neurologically intact. Plan and Disposition:: Patient was discharged without incident.
== END 2022-11-22 08:39 | disposition home or self-care (01) ==
PROVIDERS: PCP Nurse Practitioner; Visit Provider Nurse Anesthetist, Certified Registered
DX: M46.1 Sacroiliitis, not elsewhere classified (principal)
CPT/HCPCS: 27096; G0260; J1040

== ENCOUNTER → 2022-12-14 08:14 | Outpatient (POV) | payer MEDICARE, SELFPAY ==
[2022-12-14 08:45] VITALS: BP 111/58; PULSE 94; RESP 18; O2SAT 96; BMI 23.0
--- NOTE | 2022-12-14 08:47 | EXP.PAIN.SOA ---
[facility] Pain Management SOAP Note Subjective:: Patient is a pleasant 52-year-old female who presents today for follow-up of bilateral SI injections on 11/22/2022. We are currently treating the patient for degenerative disc disease of lumbar spine with lumbar radiculopathy symptoms, sacroiliitis, status post intrathecal pain pump and spinal cord stimulator explant due to nonfunctioning, right shoulder pain. Today she rates her pain a 5 out of 10. Patient states that she did not notice any additional improvement following her SI injections. She states she still has pain in her low back that does radiate down into her legs. She does describe this as an aching, throbbing sensation with numbness and tingling and burning sensations. She does state the pain interferes with her ability perform activities of daily living such as cooking and cleaning. Patient is currently managed with Soma 350 mg 3 times a day, clonazepam 0.5 mg twice a day and gabapentin 300 mg 3 times a day from her primary care doctor. She is also prescribed compounded cream. Her Loi has been reviewed and is appropriate. Review of Systems: General: No recent weight changes, no fever, no sleep disturbances Respiratory: No cough, no shortness of air, no recurring pulmonary infections Cardiovascular/peripheral vascular: No chest pain, no palpitations, no edema, no shortness of breath Gastrointestinal: No new onset incontinence, normal bowel movements reported Genitourinary: No new onset incontinence Musculoskeletal: Low back pain, bilateral leg pain Psychiatric: [Normal mood/affect] Neurological: [Denies weakness in extremities], [denies balance issues] Objective:: Physical Exam: General: Alert and oriented x3, no acute distress, pleasant and cooperative Lungs: Respirations even and unlabored, symmetrical chest expansion Eyes: PERRL Musculoskeletal: Flexion and extension of lumbar [spine] somewhat guarded secondary to pain, [antalgic gait noted] point tenderness along bilateral piriformis muscles Neurological: Speech clear, no gross sensory deficit Assessment:: Degenerative disc disease of lumbar spine with lumbar radiculopathy symptoms, sacroiliitis, status post SCS and intrathecal pump explant due to nonfunctioning, shoulder pain, piriformis syndrome Plan:: Patient is experiencing worsening pain in her low back with radiating symptoms into her bilateral lower extremities. Patient did have limited range of motion of her lumbar spine during today's visit. I have discussed with the patient that it may be beneficial to try a lumbar epidural steroid injection. Risk and benefits were discussed with the patient and she would like to proceed forward with this plan of care. Patient is currently on a blood thinner however she is able to stop this medication 7 days prior to her her injection. We will schedule her for an LESI L4-L5. Patient has been instructed to contact the clinic with any concerns before the next appointment. Dr. Torrez has reviewed this note and agrees with this plan of care. This note was dictated using voice recognition software and make contain errors or omissions. [facility] Disclaimer: The information contained in this section may have been updated after the patient was seen, as this information can be updated by other users. Medical History No significant past medical history Surgical History History of knee replacement Family History Other Colon cancer Family history of hypertension Family history of myocardial infarction Social History (Updated 11/22/22 @ 07:59 by Hope Doe RN) Smoking Status: Current every day smoker tobacco type: cigarettes packs per day: 1 second hand exposure: Yes alcohol intake: never substance use type: denies use current occupational status: retired and other Travel in the
== END ==
PROVIDERS: PCP Nurse Practitioner; Visit Provider Nurse Anesthetist, Certified Registered
DX: M51.16 Intervertebral disc disorders with radiculopathy, lumbar region (principal); M46.1 Sacroiliitis, not elsewhere classified; M25.511 Pain in right shoulder; G57.00 Lesion of sciatic nerve, unspecified lower limb
CPT/HCPCS: 99212; G0463

== ENCOUNTER 2023-01-03 07:42 | Day surgery (SDC) | payer MEDICARE, SELFPAY ==
[2023-01-03 08:12] VITALS: BP 120/71; PULSE 83; RESP 16; TEMP 36.4; O2SAT 97; BMI 22.7
[2023-01-03 08:35] VITALS: BP 114/72; PULSE 80; RESP 20; O2SAT 97
[2023-01-03 08:41] VITALS: BP 106/72; BP 114/72; PULSE 77; PULSE 78; RESP 18; RESP 20; O2SAT 97
--- NOTE | 2023-01-03 08:42 | EXP.PAIN.PRO ---
Procedure Date: 01/03/23 Time: 08:20 Anesthesiologist:: Frederick Nielsen CRNA Complications:: None Pre-procedure Diagnosis:: Degenerative disc lumbar spine multilevels. Lumbar radiculopathy. Lumbar postlaminectomy syndrome. Post-procedure Diagnosis:: Same. Indications for Procedure:: Patient is a very pleasant 52-year-old female comes our clinic today for lumbar epidural steroid injection. Patient has undergone lumbar fusion multiple levels 10 to 12 years ago. She continues with low back pain as well as bilateral hip and leg radicular symptoms. She rates her pain 08/22 Procedure Details:: Procedure: Lumbar epidural steroid injection under fluoroscopy Informed consent was obtained and the risks and benefits of the procedure were explained to the patient. The patient was taken to the procedure room and noninvasive monitors placed, including noninvasive blood pressure cuff and pulse oximeter. The back was viewed using C-arm Fluoroscopy and prepped using Chloraprep as a cleansing solution and the L4-L5 interspace was palpated. Skin and subcutaneous tissues were anesthetized using lidocaine 1.5% and a 25-gauge needle. After this, an 18-gauge Touhy epidural needle was placed into the L4-L5 interspace and advanced using fluoroscopic guidance and loss of resistance to air until the epidural space was encountered. After confirmation of needle placement in the epidural space, with dye, a solution containing normal saline, 3 mL and Depo-Medrol 80 mg were incrementally injected into the lumbar epidural space. The patient tolerated the procedure well with no complications. The patient was observed in the Pain Clinic and then discharged home neurologically intact. Plan and Disposition:: Patient was discharged without incident.
== END 2023-01-03 08:41 | disposition home or self-care (01) ==
PROVIDERS: PCP Nurse Practitioner; Visit Provider Nurse Anesthetist, Certified Registered
DX: M51.16 Intervertebral disc disorders with radiculopathy, lumbar region (principal); M96.1 Postlaminectomy syndrome, not elsewhere classified
CPT/HCPCS: 62323; J1040

== ENCOUNTER → 2023-01-19 08:44 | Outpatient (POV) | payer MEDICARE, SELFPAY ==
[2023-01-19 09:06] VITALS: BP 121/80; PULSE 96; RESP 18; O2SAT 98; BMI 22.8
--- NOTE | 2023-01-19 09:24 | EXP.PAIN.SOA ---
[facility] Pain Management SOAP Note Subjective:: Patient is a pleasant 52-year-old female who presents today for follow-up of lumbar epidural [place] [address]/04/2029. We are currently treating the patient for degenerative disc disease of the lumbar spine with lumbar radiculopathy symptoms, sacroiliitis, status post intrathecal pain pump and spinal cord stimulator explant due to nonfunctioning status, right shoulder pain. Today she rates her pain a 5 out of 10. Patient denies any new injury or trauma. She does state that she had 0 improvement following this injection. Patient states she continues to have pain in her low back that does radiate into her buttocks and down her legs. Patient is currently managed with Soma 350 mg 3 times a day, clonazepam 0.5 mg twice a day and gabapentin 300 mg 3 times a day from her PCP. She is also prescribed compounded cream. Patient does state that she previously had to have her devices explant due to having to have shoulder and knee replacements and that they were no longer functioning however she does state today that she is interested in possibly getting her pump back due to when it was working it provided significant relief. Her Loi has been reviewed and is appropriate. Review of Systems: General: No recent weight changes, no fever, no sleep disturbances Respiratory: No cough, no shortness of air, no recurring pulmonary infections Cardiovascular/peripheral vascular: No chest pain, no palpitations, no edema, no shortness of breath Gastrointestinal: No new onset incontinence, normal bowel movements reported Genitourinary: No new onset incontinence Musculoskeletal: Low back pain, buttocks pain, leg pain Psychiatric: [Normal mood/affect] Neurological: [Denies weakness in extremities], [denies balance issues] Objective:: Physical Exam: General: Alert and oriented x3, no acute distress, pleasant and cooperative Lungs: Respirations even and unlabored, symmetrical chest expansion Eyes: PERRL Musculoskeletal: Flexion and extension of lumbar [spine] somewhat guarded secondary to pain, [antalgic gait noted] Neurological: Speech clear, no gross sensory deficit Assessment:: Degenerative disc disease of lumbar spine with lumbar radiculopathy symptoms, sacroiliitis, status post intrathecal pain pump and spinal cord stimulator explant due to nonfunctioning status, right shoulder pain, chronic pain syndrome Plan:: Patient continues to experience significant pain in her low back with radiating symptoms to her buttocks and legs. I have discussed with the patient that I will order x-ray and MRI without contrast of her lumbar spine. I have reviewed over the risk and benefits of the intrathecal pump trial and she would like to proceed forward with this option. I will order a psychological evaluation and if she is deemed an appropriate candidate we will proceed forward with this option later date. Patient will return to clinic in 1 month following her imaging and psych eval. Patient has been instructed to contact the clinic with any concerns before the next appointment. Dr. Torrez has reviewed this note and agrees with this plan of care. This note was dictated using voice recognition software and make contain errors or omissions. [facility] Disclaimer: The information contained in this section may have been updated after the patient was seen, as this information can be updated by other users. Medical History No significant past medical history Surgical History History of knee replacement Family History Other Colon cancer Family history of hypertension Family history of myocardial infarction Social History Smoking Status: Current every day smoker tobacco type: cigarettes packs per
== END ==
PROVIDERS: PCP Nurse Practitioner; Visit Provider Nurse Practitioner Family
DX: M51.16 Intervertebral disc disorders with radiculopathy, lumbar region (principal); M46.1 Sacroiliitis, not elsewhere classified; M25.511 Pain in right shoulder; G89.4 Chronic pain syndrome
CPT/HCPCS: 99212; G0463

== ENCOUNTER → 2023-01-19 09:29 | Outpatient (CLI) | payer MEDICARE, SELFPAY ==
--- NOTE | 2023-01-19 09:37 | XR_ITS ---
FINAL REPORT CLINICAL HISTORY: LBP BLE COMPARISON: None FINDINGS: LUMBOSACRAL SPINE SERIES Five views of the lumbosacral spine were obtained. There are postoperative changes from L4 through S1. There is no fracture present. There is mild anterolisthesis of L3 on L4. There is mild degenerative change. Vascular calcifications are noted. Interspinous catheter is present. There is mild rightward curvature of the lumbar spine. IMPRESSION: Degenerative changes without acute process. Reviewed, Interpreted and Dictated by Mario Couch III, MD Transcribed by Yesenia Patrick Authenticated and . [facility]
--- NOTE | 2023-01-19 09:37 | XR_ITS ---
FINAL REPORT CLINICAL HISTORY: LBP BLE COMPARISON: None FINDINGS: SACROILIAC JOINTS SERIES Three views were obtained. There is no acute fracture or dislocation. The joint spaces appear normal. The visualized bony structures are well aligned. No soft tissue abnormality is seen. IMPRESSION: No acute bony abnormality. Reviewed, Interpreted and Dictated by Mario Couch III, MD Transcribed by Yesenia Patrick Authenticated and [facility]
== END ==
PROVIDERS: PCP Nurse Practitioner; Visit Provider Anesthesiology
DX: M54.50 Low back pain, unspecified (principal); M79.604 Pain in right leg; M79.605 Pain in left leg
CPT/HCPCS: 72110; 72202; 99212; G0463

== ENCOUNTER → 2023-02-16 09:17 | Outpatient (POV) | payer MEDICARE, SELFPAY ==
[2023-02-16 09:50] VITALS: BP 148/94; PULSE 87; RESP 18; O2SAT 97; BMI 23.0
--- NOTE | 2023-02-16 09:53 | A.OFFVIS_ITS ---
[facility] Pain Management SOAP Note Subjective:: Patient is a pleasant 52-year-old female who presents today for follow-up. We are currently treating the patient for degenerative disc disease of lumbar spine with lumbar radiculopathy symptoms, sacroiliitis, status post intrathecal pain pump and spinal cord stimulator explant due to nonfunctioning status, right shoulder pain. Today she rates her pain a 6 out of 10. Patient denies any new trauma or injury. She denies any change to location or type of pain that she experiences. Patient states she continues to experience chronic pain in her low back that is daily and does interfere with her ability perform activities of daily living. Patient did complete her x-ray imaging and is scheduled for her lumbar MRI today at 1030. Patient at our last visit was sent for psychological evaluation for possible intrathecal pain pump. She does state that she has not heard from this office yet however was given a number to contact to follow-up with them. Patient is currently managed with Soma 350 mg 3 times a day, clonazepam 0.5 mg twice a day and gabapentin 300 mg 3 times a day from her PCP. She denies any side effects from this medication. Her Loi has been reviewed and is appropriate. Review of Systems: General: No recent weight changes, no fever, no sleep disturbances Respiratory: No cough, no shortness of air, no recurring pulmonary infections Cardiovascular/peripheral vascular: No chest pain, no palpitations, no edema, no shortness of breath Gastrointestinal: No new onset incontinence, normal bowel movements reported Genitourinary: No new onset incontinence Musculoskeletal: Low back pain Psychiatric: [Normal mood/affect] Neurological: [Denies weakness in extremities], [denies balance issues] Objective:: Physical Exam: General: Alert and oriented x3, no acute distress, pleasant and cooperative Lungs: Respirations even and unlabored, symmetrical chest expansion Eyes: PERRL Musculoskeletal: Flexion and extension of lumbar [spine] somewhat guarded secondary to pain, [antalgic gait noted] Neurological: Speech clear, no gross sensory deficit FINDINGS: LUMBOSACRAL SPINE SERIES Five views of the lumbosacral spine were obtained. There are postoperative changes from L4 through S1. There is no fracture present. There is mild anterolisthesis of L3 on L4. There is mild degenerative change. Vascular calcifications are noted. Interspinous catheter is present. There is mild rightward curvature of the lumbar spine. IMPRESSION: Degenerative changes without acute process. Reviewed, Interpreted and Dictated by Mario Couch III, MD Transcribed by Yesenia Patrick Authenticated and [facility] Assessment:: Degenerative disc disease of lumbar spine with lumbar radiculopathy symptoms, sacroiliitis, status post intrathecal pain pump and spinal cord stimulator explant due to nonfunctioning status, right shoulder pain Plan:: I have reviewed over the x-ray findings with the patient. I have also discussed the pain pump trial risk and benefits and reviewed over any question she may have regarding this procedure. Patient would like to still proceed forward with this plan of care. I have counseled the patient that we will follow-up with her in 3 weeks for reevaluation of symptoms following her psychological evaluation and if she is deemed an appropriate candidate we will proceed forward with a trial at a future date. Patient did previously have a itching reaction action to morphine that was severe and was put on Dilaudid and her intrathecal pump in the past. Patient has been instructed to contact the clinic with any concerns before the next appointment. Dr. Torrez has reviewed this note and agrees with this plan of care. This note was dictated using voice recognition software and make contain errors or omissions. [facility] Disclaimer: The information contained in this section may have been updated after the patient was seen, as this information can be updated by other users. Medical History No significant past medical history Surgical History History of knee replacement Family History Other Colon cancer Family history of hypertension Family history of myocardial infarction Social History Smoking Status: Current every day smoker tobacco type: cigarettes packs per day: 1 second hand exposure: Yes alcohol intake: never substance use type: denies use current occupational status: retired Travel in the last 8 weeks: None household members: spouse housing: house current occupational exposures/hazards: No caffeine: Yes
== END ==
LOC: SC.PAIN 09:18
PROVIDERS: PCP Nurse Practitioner; Visit Provider Nurse Practitioner Family
DX: M51.16 Intervertebral disc disorders with radiculopathy, lumbar region (principal); M46.1 Sacroiliitis, not elsewhere classified; M25.511 Pain in right shoulder
CPT/HCPCS: 99212; G0463

== ENCOUNTER 2023-02-16 10:18 | Outpatient (CLI) | payer MEDICARE, SELFPAY ==
--- NOTE | 2023-02-16 10:24 | MR_ITS ---
FINAL REPORT CLINICAL HISTORY: CHRONIC LBP. HX OF LUMBAR SURGERY. FINDINGS: Multiplanar MR imaging of the lumbar spine was performed without contrast. On the sagittal T2-weighted images, disc degeneration is seen at multiple levels. There is mild anterolisthesis of L3 on L4. Postoperative changes are seen from fusion from L4-S1. Mild endplate changes are seen at several levels. There is no evidence of fracture. No bony mass is identified. The conus has an unremarkable appearance. L1-2: An annular bulge is present. There is no significant canal stenosis or neural foraminal narrowing. L2-3: An annular bulge is present. There is no significant canal stenosis or neural foraminal narrowing. L3-4: An annular bulge is present. There is bilateral facet arthropathy. Bilateral lateral recess stenosis is noted. There is mild central canal stenosis with an AP diameter of the thecal sac of 7 mm. A left foraminal disc protrusion is present. There is mild right and moderate left neural foraminal narrowing. L4-5: Postoperative changes are seen from L4 laminectomies and from fusion. Mild right and moderate left neural foraminal narrowing is noted. L5-S1: Postoperative changes are seen from L5 laminectomies and from fusion. Moderate right and mild left neural foraminal narrowing is seen. IMPRESSION: Postoperative changes from L4 and L5 laminectomies and fusion from L4-S1. Left foraminal L3-4 disc protrusion contributing to moderate left neural foraminal narrowing. Mild central canal stenosis at L3-4. Authenticated and ERN
== END 2023-02-16 23:59 ==
LOC: RAD 10:20
PROVIDERS: PCP Nurse Practitioner; Visit Provider Nurse Practitioner Family
DX: M54.50 Low back pain, unspecified (principal); M79.604 Pain in right leg; M79.605 Pain in left leg
CPT/HCPCS: 72148; 76376; 99212; G0463

== ENCOUNTER 2023-04-12 13:30 | Outpatient (POV) | payer MEDICARE, SELFPAY ==
--- NOTE | 2023-04-12 14:17 | EXP.PAIN.SOA ---
[facility] Pain Management SOAP Note Subjective:: Patient is a pleasant 52-year-old female who presents today for follow-up of psychological evaluation. We are currently treating the patient for degenerative disc disease of lumbar spine with lumbar radiculopathy symptoms, sacroiliitis, status post intrathecal pump and SCS explant due to nonfunctioning status, right shoulder pain. Today she rates her pain a 6 out of 10. Patient denies any new trauma or injury. She states she continues to have chronic pain in her low back and that she is experiencing radiating symptoms down her left leg. She describes this as an aching, throbbing sensation that is worse with increased activity or ambulation. She does state that she frequently feels like her leg is weak and will give out. Patient states the pain does interfere with her ability perform activities of daily living such as cooking and cleaning. At her last visit she was interested in proceeding forward with the pain pump. Patient is interested in any help we can provide. She is currently prescribed Soma, clonazepam and gabapentin from her primary care provider. Her Loi has been reviewed and is appropriate. Review of Systems: General: No recent weight changes, no fever, no sleep disturbances Respiratory: No cough, no shortness of air, no recurring pulmonary infections Cardiovascular/peripheral vascular: No chest pain, no palpitations, no edema, no shortness of breath Gastrointestinal: No new onset incontinence, normal bowel movements reported Genitourinary: No new onset incontinence Musculoskeletal: Low back pain, left leg pain Psychiatric: [Normal mood/affect] Neurological: [Denies weakness in extremities], [denies balance issues] Objective:: Physical Exam: General: Alert and oriented x3, no acute distress, pleasant and cooperative Lungs: Respirations even and unlabored, symmetrical chest expansion Eyes: PERRL Musculoskeletal: Flexion and extension of lumbar [spine] somewhat guarded secondary to pain, [antalgic gait noted] positive left leg raise with decreased sensation to light touch and decreased reflexes Neurological: Speech clear, no gross sensory deficit Assessment:: Degenerative disc disease of lumbar spine with lumbar radiculopathy symptoms, sacroiliitis, status post, and SCS explant due to nonfunctioning status, right shoulder pain Plan:: Patient is experiencing worsening pain in her low back and left leg with limited range of motion of her lumbar spine and a positive left leg raise. Patient also had decreased sensation to light touch and decreased reflexes. I have discussed with patient that she may benefit from a left transforaminal epidural steroid injection. Risk and benefits were discussed with the patient and she would like to proceed forward with this plan of care. Patient has been on Lovenox in the past however states she has not been on this medication currently. I did review over the MRI findings of the patient's lumbar spine as well as the psychological evaluation. Patient was not found to be appropriate candidate at this time due to her prior history. I have counseled the patient that we can follow-up with this at a later date. Patient was recently just added onto a new medication to help with her overall mood and depression. Patient will be scheduled for a left transforaminal epidural steroid injection at L3-L4 and L4-L5 under fluoroscopy. Patient has been instructed to contact the clinic with any concerns before the next appointment. Dr. Torrez has reviewed this note and agrees with this plan of care. This note was dictated using voice recognition software and make contain errors or omissions. [facility] Disclaimer: The information contained in this section may have been updated after the patient was seen, as this information can be updated by other users. Medical History No significant past medical history Surgical History History of knee replacement Family History Other Colon cancer Family history of hypertension Family history of myocardial infarction Social History Smoking Status: Current every day smoker tobacco type: cigarettes packs per day: 1 second hand exposure: Yes alcohol intake: never substance use type: denies use current occupational status: retired Travel in the last 8 weeks: None household members: spouse housing: house current occupational exposures/hazards: No caffeine: Yes
[2023-04-12 16:03] VITALS: BP 122/78; PULSE 87; RESP 18; O2SAT 94; BMI 23.8
== END 2023-04-12 23:59 ==
LOC: SC.PAIN 13:32
PROVIDERS: PCP Nurse Practitioner; Visit Provider Nurse Practitioner Family
DX: M51.16 Intervertebral disc disorders with radiculopathy, lumbar region (principal); M46.1 Sacroiliitis, not elsewhere classified; M25.511 Pain in right shoulder
CPT/HCPCS: 99212; G0463

== ENCOUNTER 2023-04-27 10:35 | Outpatient (CLI) | payer MEDICARE, SELFPAY ==
--- NOTE | 2023-04-27 10:40 | MM_ITS ---
PROCEDURE INFORMATION: Exam: MG Bilateral Screening 3D Mammography Exam date and time: 04/27/2023 10:45 AM Age: 52 years old Clinical indication: Screening mammogram TECHNIQUE: Imaging protocol: Bilateral Screening tomosynthesis and 2D mammography including computer-aided detection (CAD) when performed. COMPARISON: 1. MG MM DIG SCREENING MAMM BI W/CAD 12/07/2021 1:46 PM 2. MG MM DIG SCREENING MAMM BI W/CAD 06/12/2020 11:10 AM 3. MG SCBI MM Dig screening mamm BI w/CAD 03/12/2018 4:26 PM 4. MG DMSB DIG MAMM-SCREEN CRISTOFER 07/03/2014 8:20 AM FINDINGS: MAMMOGRAPHY: Breast composition: Breast composition: There are scattered areas of fibroglandular density. Mass: Two masses within the outer left anterior 1/3 measuring 0.5 cm and inner left anterior 1/3 measuring 0.6 cm, not well-delineated on MLO should be further assessed with spot views in CC/MLO and full lateral projection. Ultrasound should also be performed. Architectural distortion: No new or suspicious architectural distortion. Calcifications: No new or suspicious calcifications are present Asymmetric density: No new or suspicious asymmetric density is present Skin thickening: None. Axillary adenopathy: None. IMPRESSION: Two masses , 1 within the outer left anterior 1/3 measuring 0.5 cm and a 2nd in the inner left anterior 1/3 measuring 0.6 cm, not well-delineated on MLO should be further assessed with spot views in CC/MLO and full lateral projection. Ultrasound should also be performed. ASSESSMENT: BI-RADS 0, incomplete, needs additional imaging evaluation
== END 2023-04-27 23:59 ==
LOC: RAD 10:36
PROVIDERS: PCP Nurse Practitioner; Visit Provider Nurse Practitioner
DX: Z12.31 Encounter for screening mammogram for malignant neoplasm of breast (principal)
CPT/HCPCS: 77063; 77067

== ENCOUNTER 2023-05-02 13:59 | Day surgery (SDC) | payer MEDICARE, SELFPAY ==
[2023-05-02 14:13] VITALS: BP 116/77; PULSE 92; RESP 18; TEMP 36.6; O2SAT 97; BMI 23.0
[2023-05-02 14:27] VITALS: BP 111/73; PULSE 85; RESP 18; O2SAT 99
[2023-05-02] MEDS: LIDOCAINE 1% 5ML PF VIAL 5 ML (14:27)
[2023-05-02 14:31] VITALS: BP 111/73; PULSE 86; RESP 18; O2SAT 96
[2023-05-02 14:35] VITALS: BP 129/80; PULSE 87; RESP 18; O2SAT 97
--- NOTE | 2023-05-02 14:38 | P.PCN_ITS ---
Procedure Date: 05/02/23 Time: 14:30 Anesthesiologist:: Frederick Nielsen CRNA Complications:: None Pre-procedure Diagnosis:: Degenerative disc lumbar spine multilevels. Lumbar radiculopathy. Lumbar postlaminectomy syndrome. Lumbar post fusion syndrome. Chronic pain syndrome. Lumbar spondylosis. Multilevel lumbar facet arthropathy. Post-procedure Diagnosis:: Same. Indications for Procedure:: Patient is a very pleasant 52-year-old female comes our clinic today for a left L3-4 and L4-5 transforaminal epidural steroid injection. Patient reports low back pain as well as left hip and leg radicular symptoms. She does report some right leg radicular symptoms at times. However left greater than right. She rates her pain 8/10. I discussed in detail with the patient regarding caudal epidural steroid injection if in fact this transforaminal route is not effective regarding her pain. Procedure Details:: Details of the procedure were explained to the patient. The patient was taken the procedure room placed in the prone position. The area of the lumbar spine was cleansed using chlorhexidine as a cleansing solution. At this time using fluoroscopy guidance markers were placed on the left lateral border of the L3 and L4 vertebral body. The skin and subcutaneous tissue was anesthetized using 1% lidocaine and 25-gauge needle. At this time using a 22-gauge 3-1/2 inch spinal needle the left upper one third of the L3-4 foramen was accessed. The same was done at the left L4-5 foramen. Needle positions were confirmed and a lateral view using fluoroscopy and contrast dye. At this time 1 cc of 1% lidocaine +20 mg of Depo-Medrol was injected at each level after negative aspiration. [place] were removed. Band-Aid applied. Patient tolerated the procedure without difficulty. There are no complications. Plan and Disposition:: Patient was discharged without incident.
== END 2023-05-02 14:35 | disposition home or self-care (01) ==
LOC: SC.PAINP 14:01
PROVIDERS: PCP Nurse Practitioner; Visit Provider Nurse Anesthetist, Certified Registered
DX: M51.16 Intervertebral disc disorders with radiculopathy, lumbar region (principal); M96.1 Postlaminectomy syndrome, not elsewhere classified; G89.4 Chronic pain syndrome; M47.26 Other spondylosis with radiculopathy, lumbar region
CPT/HCPCS: 64483; 64484; J1030

== ENCOUNTER 2023-05-09 13:50 | Outpatient (CLI) | payer MEDICARE, SELFPAY ==
--- NOTE | 2023-05-09 13:57 | US_ITS ---
PROCEDURE INFORMATION: Exam: US Left Breast, Complete MG Left Diagnostic Breast Tomosynthesis Exam date and time: 05/09/2023 2:23 PM Age: 53 years old Clinical indication: Patient recalled on the basis of a screening mammogram for further evaluation; Left breast; masses TECHNIQUE: Imaging protocol: Complete ultrasound of all four quadrants of the left breast and the retroareolar regions, including ultrasound of the axilla when performed. Left Diagnostic tomosynthesis and 2D mammography including computer-aided detection (CAD) when performed. Unilateral or bilateral exam. COMPARISON: US BREAST LT COMPLETE 12/07/2021 2:39 PM FINDINGS: MAMMOGRAPHY: Breast composition: There are scattered areas of fibroglandular density (based on the most recent screening mammogram report). Breast mammogram findings: Digital diagnostic spot compression views of the left breast demonstrate grossly stable subcentimeter nodular tissue laterally and medially in the anterior breast. ULTRASOUND: Breast ultrasound findings: Sonographic images of the and breast including the retroareolar region, all 4 quadrants and the axilla do not demonstrate any solid masses. Scattered subcentimeter cysts are noted in the left breast correlating with the nodular tissue on mammography. No architectural distortion or acoustical shadowing. No skin thickening or axillary adenopathy. IMPRESSION: Masses on screening mammography correspond to underlying cystic change sonographically. There is no mammographic evidence of malignancy.Annual bilateral mammographic screening is recommended unless otherwise clinically indicated. ASSESSMENT: BI-RADS Category 2: Benign.
== END 2023-05-09 23:59 ==
PROVIDERS: PCP Nurse Practitioner; Visit Provider Nurse Practitioner
DX: N63.20 Unspecified lump in the left breast, unspecified quadrant (principal); R92.8 Other abnormal and inconclusive findings on diagnostic imaging of breast
CPT/HCPCS: 76641; 77061; 77065; G0279

== ENCOUNTER 2023-05-24 14:15 | Outpatient (POV) | payer MEDICARE, SELFPAY ==
[2023-05-24 14:39] VITALS: BP 115/75; PULSE 83; RESP 18; TEMP 36.6; O2SAT 98; BMI 23.0
--- NOTE | 2023-05-24 16:07 | A.OFFVIS_ITS ---
[facility] Pain Management SOAP Note Subjective:: Patient is a pleasant 53-year-old female who presents today for follow-up of left transforaminal epidural steroid injection L3-L4 and L4-L5 on 05/02/2023.She rates her pain a 9 out of 10 and denies any new trauma or injury. Patient does state that she really did not notice significant relief following this injection. She states that she has been experiencing more muscle spasms there in her back. Patient is prescribed tizanidine however she states that she has been on this for years and has not noticed significant relief. Patient has also been on Soma in the past and Flexeril. Patient does also state that she continues to have overall skin sensations that are tender to touch and believes this is related to her fibromyalgia. Patient states in the past when she went to [facility] that often times they discussed giving her oral steroids and a Z-Brett in these times. Patient states that they did do evaluation for possible lupus and all of her test would always come back negative. Patient does state that she continues to have chronic pain at her low back that is a little higher than her buttocks area. Patient states she is very tender to touch. She states that this is a constant aching, throbbing sensation that does radiate down her extremities and interferes with her ability to perform activities of daily living. Patient is still very interested in any help we may be able to provide. Patient was sent for psychological evaluation for possible pain pump trial however she did not passed this evaluation. Patient does state that she is still interested in this option. Her Loi has been reviewed and is appropriate. Review of Systems: General: No recent weight changes, no fever, no sleep disturbances Respiratory: No cough, no shortness of air, no recurring pulmonary infections Cardiovascular/peripheral vascular: No chest pain, no palpitations, no edema, no shortness of breath Gastrointestinal: No new onset incontinence, normal bowel movements reported Genitourinary: No new onset incontinence Musculoskeletal: Low back pain, leg pain, muscle spasm Psychiatric: [Normal mood/affect] Neurological: [Denies weakness in extremities], [denies balance issues] Objective:: Physical Exam: General: Alert and oriented x3, no acute distress, pleasant and cooperative Lungs: Respirations even and unlabored, symmetrical chest expansion Eyes: PERRL Musculoskeletal: Flexion and extension of lumbar [spine] somewhat guarded secondary to pain, [antalgic gait noted] extreme point tenderness along her mid lumbar spine approximately the L3-L4 L4-L5 levels; no point tenderness along bilateral SIs Neurological: Speech clear, no gross sensory deficit Assessment:: Degenerative disc disease of lumbar spine with lumbar radiculopathy symptoms, sacroiliitis, status post SCS explant due to nonfunctioning status, right shoulder pain, chronic pain syndrome Plan:: Patient continues to experience significant pain in her low back with radiating symptoms to her lower extremities with numbness and tingling. Patient did have limited range of motion of her lumbar spine and extreme point tenderness around the L3-L4 L4-L5 levels. Patient was tested for bilateral SI pain however she did not have point tenderness during today's exam. I have discussed with the patient that she may benefit from a lumbar epidural steroid injection at the L3- L4 level. Patient did previously have a lumbar MRI in February that did show significant findings at the L3-L4 level with lumbar stenosis. Risk and benefits of this injection were explained to the patient and she would like to proceed forward with this plan of care. I have discussed with the patient that she may benefit from changing her current muscle relaxer. Patient agrees with this plan of care. I will send in a 14-day supply of the methocarbamol 750 mg 3 times daily as needed and a 5-day dose of prednisone 20 mg twice daily. Patient was counseled to stop all other muscle relaxers while trying this medication. I have also discussed with the patient in future that she may benefit from the addition of duloxetine to help treat her overall fibromyalgia. We will follow- up with this at future visits. Patient will be scheduled for lumbar epidural steroid injection L3-L4 under fluoroscopy. I will also have the patient follow- up in 2 weeks for medication refill if indicated. Patient has been instructed to contact the clinic with any concerns before the next appointment. Dr. Torrez has reviewed this note and agrees with this plan of care. This note was dictated using voice recognition software and make contain errors or omissions. [facility] Disclaimer: The information contained in this section may have been updated after the patient was seen, as this information can be updated by other users. Medical History No significant past medical history Surgical History History of knee replacement Family History Other Colon cancer Family history of hypertension Family history of myocardial infarction Social History Smoking Status: Current every day smoker tobacco type: cigarettes packs per day: 1 second hand exposure: Yes alcohol intake: never substance use type: denies use current occupational status: employed Travel in the last 8 weeks: None household members: spouse housing: house current occupational exposures/hazards: No caffeine: Yes
--- NOTE | 2023-05-29 14:34 | PC.NURSE ---
contacted pt regarding her injection scheduled for 06/13/23, pt will need to stop lovenox prior to injection, last lovenox dose would be 06/11/23. Pt verbalized understanding.
== END 2023-05-24 23:59 | disposition home or self-care (01) ==
PROVIDERS: PCP Nurse Practitioner; Visit Provider Nurse Practitioner Family
DX: M51.16 Intervertebral disc disorders with radiculopathy, lumbar region (principal); M46.1 Sacroiliitis, not elsewhere classified; M25.511 Pain in right shoulder; G89.4 Chronic pain syndrome
CPT/HCPCS: 99212; G0463

== ENCOUNTER 2023-10-30 10:24 | Day surgery (SDC) | payer MEDICARE, SELFPAY ==
[2023-10-20 13:58] VITALS: BMI 47.6
[2023-10-30] VITALS (7 sets, daily range): BP systolic 92–106; BP diastolic 52–74; PULSE 73–101; RESP 18; TEMP 36.3–36.6; O2SAT 97–99
[2023-10-30] MEDS: LACTATED RINGERS 1000ML 1,000 ML 25 ML IV (10:35)
--- NOTE | 2023-10-30 10:46 | EXP.ANES.CKL ---
[facility] Disclaimer: The information contained in this section may have been updated after the patient was seen, as this information can be updated by other users. Medical History Depression Back pain DVT (deep venous thrombosis) HLD (hyperlipidemia) Surgical History History of vocal cord polypectomy History of shoulder surgery History of hysterectomy History of tubal ligation History of back surgery History of knee replacement Family History Other Colon cancer Family history of hypertension Family history of myocardial infarction Social History Smoking Status: Current every day smoker tobacco type: cigarettes packs per day: 1 second hand exposure: Yes alcohol intake: never substance use type: denies use current occupational status: employed and unemployed Travel in the last 8 weeks: None household members: spouse housing: house current occupational exposures/hazards: No caffeine: Yes [facility] Anesthesia Checklist Patient Identification Patient Identification: Arm Band and Verbal (Name & ) Structural Data Admitted From: Home Planned Operative Procedure/s: Colonoscopy Consent for Planned Operative Procedure(s) Verified: Yes Verified Documents: Surgical Consent and History and Physical NPO Status Verified Time NPO: 00:00 Additional verifications Anesthesia Reactions: No Hx Blood Transfusions: No Blood Transfusion Reaction: No Airway Assessment Mallampati Score:: Class II C-Spine Mobility Assessed: Yes TMJ Mobility Assessed: Yes Dentition: Good Dentition Neurological Assessment Level of Consciousness: Awake Hx Seizures: No Numbness or tingling in extremities: No Anesthesia Plan Anesthesia Risk discussed: Yes Anesthesia Plan: Verified ASA Class: II Anesthesia Type: MAC
--- NOTE | 2023-10-30 11:39 | HMH.PROCNOTE ---
[facility] Procedure Note Date: 10/30/23 Time: 11:39 Procedure Note:: Colonoscopy Procedure Report: Colonoscopy with cold snare polypectomy Endoscopist: Luis Miguel Merritt II, MD Referring physician: YISSEL Tucker Date of Procedure: October 30, 2023 Equipment: Olympus 190 variable stiffness pediatric colonoscope Sedation: MAC sedation Indication: Mrs. Dodge is a 53-year-old female who is here for initial screening colonoscopy. The patient does have some chronic longstanding constipation which is unchanged. She does intermittently have some internal hemorrhoidal bleeding with her bowel movements with straining. She reports no abdominal pain or weight loss. She uses Dulcolax to have a bowel movement and this is the only thing that works. She does have a maternal grandmother with colon cancer. Procedure: Prior to the procedure, a history and physical exam was performed, and patient's medications and allergies were reviewed. The risks, benefits and alternatives of the sedation and procedure were discussed with the patient. All questions were answered and informed consent was obtained. The patient was brought to the procedure room. Patient identification and proposed procedure were verified by the physician and the nurse. The patient was placed in a left lateral decubitus position and the scope was passed under direct vision. Throughout the procedure, the patient's blood pressure, pulse, and oxygen saturations were monitored continuously. The colonoscopy was accomplished without difficulty. The patient tolerated the procedure well. Findings: On digital rectal examination there was normal rectal tone. There were no external hemorrhoids. The colonoscope was introduced through the anal canal to the rectum and advanced to the cecum. The ileocecal valve and appendiceal orifice were identified. The scope was advanced a short distance into the ileum which appeared grossly normal. The scope was then withdrawn into the colon. There was moderate colonic redundancy. The cecum, ascending and transverse: Were grossly normal. Within the descending colon there was an elongated granular polyp that was approximately 13 to 14 mm in width and 6 to 7 mm in length. This was removed via piecemeal cold snare polypectomy in its entirety. The remainder of the distal descending, sigmoid and rectum are grossly normal. There were no other mucosal abnormalities identified. Upon retroflexion within the rectum there were grade 1-2 internal hemorrhoids.The preparation was fair to good throughout with [place] Preparation Score of 7 out of 9. The cecal time was 14 minutes. Impression: 1. Descending colon polyp (13 to 14 mm) 2. Grade 1-2 internal hemorrhoids Plan: I will follow-up the polyp histology. Based upon its size and adenomatous nature, I would recommend repeat surveillance colonoscopy again in 3 years. We will discuss additional treatment options for her chronic constipation.
== END 2023-10-30 12:20 | disposition home or self-care (01) ==
PROVIDERS: PCP Nurse Practitioner; Visit Provider Internal Medicine Gastroenterology
DX: K59.04 Chronic idiopathic constipation (principal); Z12.11 Encounter for screening for malignant neoplasm of colon; Z80.0 Family history of malignant neoplasm of digestive organs; K64.8 Other hemorrhoids; K63.5 Polyp of colon
CPT/HCPCS: 45385; 88305; J7120

== ENCOUNTER 2024-03-04 10:47 | Outpatient (POV) | payer MEDICARE, SELFPAY ==
[2024-03-04 11:05] VITALS: BP 121/69; PULSE 85; RESP 16; O2SAT 95; BMI 21.1
--- NOTE | 2024-03-04 11:24 | EXP.PAIN.SOA ---
[facility] Disclaimer: The information contained in this section may have been updated after the patient was seen, as this information can be updated by other users. Medical History Depression Back pain DVT (deep venous thrombosis) HLD (hyperlipidemia) Surgical History History of vocal cord polypectomy History of shoulder surgery History of hysterectomy History of tubal ligation History of back surgery History of knee replacement Family History Other Colon cancer Family history of hypertension Family history of myocardial infarction Social History Smoking Status: Current every day smoker tobacco type: cigarettes packs per day: 1 second hand exposure: Yes alcohol intake: never substance use type: denies use current occupational status: other Travel in the last 8 weeks: None household members: spouse housing: house current occupational exposures/hazards: No caffeine: Yes PM Subjective & Objective Subjective Subjective:: Patient is a pleasant 53-year-old female who presents today for worsening pain. She does rate her pain a 10 out of 10. Patient states that she has chronic pain in multiple areas including her knees, shoulder and low back. Patient does state that the low back has continued to worsen over time and that she has recently had additional falls related to the ice causing the pain to become severe that she just cannot do anything due to this. She states the pain is constant and interferes with her ability perform activities of daily living such as cooking and cleaning. Patient states that she cannot tolerate prolonged sitting due to the worsening pain. She states she frequently has to change position. Patient is interested in any possible help we can provide. Patient does also make mention that she still would like to proceed forward with the possible pain pump option in future. Patient did have a psychological evaluation in the past however did not pass this. Her Loi has been reviewed and is appropriate. Review of Systems: General: No recent weight changes, no fever, no sleep disturbances Respiratory: No cough, no shortness of air, no recurring pulmonary infections Cardiovascular/peripheral vascular: No chest pain, no palpitations, no edema, no shortness of breath Gastrointestinal: No new onset incontinence, normal bowel movements reported Genitourinary: No new onset incontinence Musculoskeletal: Low back pain, bilateral hip pain Psychiatric: [Normal mood/affect] Neurological: [Denies weakness in extremities], [denies balance issues] Pain at rest (0-10 scale): 10 Objective Objective:: Physical Exam: General: Alert and oriented x3, no acute distress, pleasant and cooperative Lungs: Respirations even and unlabored, symmetrical chest expansion Eyes: PERRL Musculoskeletal: Flexion and extension of lumbar [spine] somewhat guarded secondary to pain, [antalgic gait noted] point tenderness along bilateral SIs with positive bilateral Guy's, Luana's, Gaenslen's, compression and distraction exam Neurological: Speech clear, no gross sensory deficit Has patient had previous pain injection?: No Conservative treatment options previously tried: Home exercise plan Length of treatment: Longer than 12 weeks Meds Home Medications and Allergies Home Medications ?Medication ?Instructions ?Recorded ?Confirmed ?Type gabapentin 300 mg capsule 300 mg PO HS Pain 12/18/17 03/04/24 History tizanidine 4 mg tablet 4 mg PO BID unknown 12/18/17 03/04/24 History amitriptyline 150 mg tablet 150 mg PO DAILY sleep 06/25/18 03/04/24 History citalopram 40 mg tablet 40 mg PO DAILY Depression 08/31/21 03/04/24 History quetiapine 100 mg tablet 100 mg PO DAILY Depression 08/31/21 03/04/24 History methocarbamol 750 mg tablet 750 mg PO TID PRN muscle spasm #42 05/24/23 03/04/24 Rx tabs atorvastatin 80 mg tablet 80 mg PO DAILY 07/21/23 03/04/24 History bupropion HCl 300 mg 24 hr tablet, 300 mg PO DAILY 07/21/23 03/04/24 History extended release carisoprodol 350 mg tablet 350 mg PO NEEDED PRN MUSCLE 07/21/23 03/04/24 History SPASMS enoxaparin 150 mg/mL subcutaneous 150 mg SQ DAILY 07/21/23 03/04/24 History syringe ergocalciferol (vitamin D2) 1,250 1,250 mcg PO WEEKLY 07/21/23 03/04/24 History mcg (50,000 unit) capsule estradiol 2 mg tablet 2 mg PO DAILY 07/21/23 03/04/24 History lamotrigine 100 mg tablet 100 mg PO DAILY 07/21/23 03/04/24 History polyethylene glycol 3350 17 17 g PO DAILY constipation #510 07/21/23 03/04/24 Rx gram/dose oral powder (Miralax) grams topiramate 200 mg tablet 200 mg PO DAILY 07/21/23 03/04/24 History linaclotide 290 mcg capsule 290 mcg PO DAILY #30 caps 10/30/23 03/04/24 Rx (Linzess) New Prescriptions to Start Prescriptions: Allergies Allergy/AdvReac Type Severity Reaction Status Date / Time butorphanol (From STADOL) Allergy Unknown UNKNOWN Verified 10/30/23 10:36 Penicillins (PENICILLINS) Allergy Unknown UNKNOWN Verified 10/30/23 10:36 Assessment and Plan *Assessment and plan (1) Bilateral sacroiliitis: Status: Acute Category: Medical Code(s): M46.1 - Sacroiliitis, not elsewhere classified Plan Patient is experiencing significant pain in her low back and bilateral hips with limited range of motion of her lumbar spine. Patient did have extreme point tenderness along her bilateral SIs with a positive bilateral Guy's, Luana's, Gaenslen's, compression and distraction exam. Patient has a longstanding history of chronic sacroiliitis and has had injection therapy in the past however she has not had any of these injections since 2022. Patient has had significant improvement with these in the past anywhere from 80 to 100% with diagnostic injections. I did review over with the patient that I do believe she would benefit from repeat bilateral SI injections. Risk and benefits were discussed with patient and she would like to proceed forward with this plan of care. Patient has tried and failed conservative therapy including oral medication, heat and ice, topicals, at home stretching exercise for longer than 12 weeks with no additional changes. Patient has had chronic sacroiliitis for longer than 3 months. Patient will be scheduled for bilateral SI injections under fluoroscopy. I will also send in a 5-day dose of prednisone 20 mg twice daily. Patient denies any recent oral steroid use for longer than 3 months. Patient has been instructed to contact the clinic with any concerns before the next appointment. Dr. Torrez has reviewed this note and agrees with this plan of care. This note was dictated using voice recognition software and make contain errors or omissions. All injections are used with Lidocaine, Bupivacaine and Depo Medrol. Occasionally urine drug screen is needed to verify patient's compliance with our office pain contract. This is ordered based off specific treatments related to chronic pain with the potential to abuse certain medications.
== END 2024-03-04 23:59 | disposition home or self-care (01) ==
PROVIDERS: PCP Nurse Practitioner; Visit Provider Nurse Practitioner Family
DX: M46.1 Sacroiliitis, not elsewhere classified (principal); F17.210 Nicotine dependence, cigarettes, uncomplicated; Z73.89 Other problems related to life management difficulty
CPT/HCPCS: 99212; G0463

== ENCOUNTER 2024-04-23 09:02 | Outpatient (POV) | payer MEDICARE, SELFPAY ==
[2024-04-23 09:15] VITALS: BP 101/55; PULSE 80; RESP 16; TEMP 36.8; O2SAT 99; BMI 21.1
[2024-04-23 09:35] VITALS: BP 99/67; PULSE 84; RESP 16; O2SAT 100
--- NOTE | 2024-04-23 09:36 | P.PCN_ITS ---
Procedure Date: 04/23/24 Time: 09:00 Anesthesiologist:: Frederick Nielsen CRNA Complications:: None Pre-procedure Diagnosis:: Bilateral sacroiliitis. degenerative disc lumbar spine multilevels. Lumbar radiculopathy. Lumbar postlaminectomy syndrome. Post-procedure Diagnosis:: Same. Indications for Procedure:: Patient comes our clinic today for bilateral sacroiliac joint injections cortisone and local anesthetic. Patient describes low lumbar back pain off the midline bilaterally. Bilateral posterior hip pain. Difficulty transitioning from sitting to standing. Difficulty with ambulation. She rates her pain 6/10. Procedure Details:: Procedure: Bilateral sacroiliac joint injections under fluoroscopy Informed consent was obtained and the risks and benefits of the procedure were explained to the patient.~ The patient was taken to the procedure room and noninvasive monitors were placed including a noninvasive blood pressure cuff and pulse oximeter.~ The patient was placed prone on the procedure table. Both hips were cleansed using Betadine as a cleansing solution. C-arm fluoroscopy was used to view the right sacroiliac joint.~ The skin and subcutaneous tissues were anesthetized using lidocaine 1.5% and a 25-gauge needle.~ After this, a 22-gauge spinal needle was inserted under fluoroscopic guidance into the inferior aspect of the right sacroiliac joint.~ Omnipaque dye was injected and good spread was seen throughout the joint.~ After this, approximately 5 mL of bupivacaine, 0.25% and Depo-Medrol, 40 mg was incrementally injected into the right sacroiliac joint. We then moved to the left sacroiliac joint.~ The skin and subcutaneous tissues were anesthetized using lidocaine 1.5% and a 25-gauge needle.~ After this, a 22- gauge spinal needle was inserted under fluoroscopic guidance into the inferior aspect of the left sacroiliac joint.~ Omnipaque dye was injected and good spread was seen throughout the joint. After this, approximately 5 mL of bupivacaine, 0.25% and Depo-Medrol, 40 mg was incrementally injected into the left sacroiliac joint.~ The patient tolerated the procedure well with no complications. The patient was observed in the Pain Clinic and then was discharged home neurologically intact. Plan and Disposition:: Patient was discharged without incident.
[2024-04-23] MEDS: LIDOCAINE 1% 5ML PF VIAL 5 ML (10:19)
[2024-04-23] MEDS: BUPIVACAINE 0.25% 10ML INJ 25 MG IJ (10:19)
[2024-04-23] MEDS: methylPREDNISolone ACETATE 80MG/ML VIAL 80 MG (10:20)
[2024-04-23 10:33] VITALS: BP 103/57; PULSE 80; RESP 18; O2SAT 97
[2024-04-23 10:35] VITALS: BP 103/57; PULSE 80; RESP 18; O2SAT 97
== END 2024-04-23 09:35 | disposition home or self-care (01) ==
PROVIDERS: PCP Nurse Practitioner; Visit Provider Nurse Anesthetist, Certified Registered
DX: M46.1 Sacroiliitis, not elsewhere classified (principal); M51.16 Intervertebral disc disorders with radiculopathy, lumbar region; M96.1 Postlaminectomy syndrome, not elsewhere classified
CPT/HCPCS: 27096; G0260; J1010

== ENCOUNTER 2024-05-06 08:57 | Outpatient (POV) | payer MEDICARE, SELFPAY ==
--- NOTE | 2024-05-06 09:04 | A.OFFVIS_ITS ---
[facility] Disclaimer: The information contained in this section may have been updated after the patient was seen, as this information can be updated by other users. Medical History Depression Back pain DVT (deep venous thrombosis) HLD (hyperlipidemia) Surgical History History of vocal cord polypectomy History of shoulder surgery History of hysterectomy History of tubal ligation History of back surgery History of knee replacement Family History Other Colon cancer Family history of hypertension Family history of myocardial infarction Social History Smoking Status: Current every day smoker tobacco type: cigarettes packs per day: 1 second hand exposure: Yes alcohol intake: never substance use type: denies use current occupational status: other Travel in the last 8 weeks: None household members: spouse housing: house current occupational exposures/hazards: No caffeine: Yes PM Subjective & Objective Subjective Subjective:: Patient is a pleasant 53-year-old female who presents today for follow-up of bilateral SI injections on 04/23/2024. Today she rates her pain a 6 out of 10. Patient denies any new trauma or injury. She does state that these injections did help provide significant improvement of 100% while the numbing medication was working. Patient states it was after about 4 hours however she started to notice the pain returning. Patient states that she did watch her grandkids over the weekend and notes from the constant movements and activities like being down on the floor she is having worsening pain. She denies any new injuries or falls. Patient does state that she is still interested in trying again for the possible pump trial. Patient did complete a psychological evaluation last year in March however was not deemed an appropriate candidate. Patient states she felt like the provider was very judgmental and that she would like to try this option again. Her Loi has been reviewed and is appropriate. Review of Systems: General: No recent weight changes, no fever, no sleep disturbances Respiratory: No cough, no shortness of air, no recurring pulmonary infections Cardiovascular/peripheral vascular: No chest pain, no palpitations, no edema, no shortness of breath Gastrointestinal: No new onset incontinence, normal bowel movements reported Genitourinary: No new onset incontinence Musculoskeletal: Low back pain Psychiatric: [Normal mood/affect] Neurological: [Denies weakness in extremities], [denies balance issues] Pain at rest (0-10 scale): 6 Objective Objective:: Physical Exam: General: Alert and oriented x3, no acute distress, pleasant and cooperative Lungs: Respirations even and unlabored, symmetrical chest expansion Eyes: PERRL Musculoskeletal: Flexion and extension of lumbar [spine] somewhat guarded secondary to pain, [antalgic gait noted] Neurological: Speech clear, no gross sensory deficit Has patient had previous pain injection?: Yes Percent improvement in pain since last injection: 100% Conservative treatment options previously tried: Home exercise plan Length of treatment: Longer than 12 weeks Meds Home Medications and Allergies Home Medications ?Medication ?Instructions ?Recorded ?Confirmed ?Type gabapentin 300 mg capsule 300 mg PO HS Pain 12/18/17 05/06/24 History tizanidine 4 mg tablet 4 mg PO BID unknown 12/18/17 05/06/24 History amitriptyline 150 mg tablet 150 mg PO DAILY sleep 06/25/18 05/06/24 History citalopram 40 mg tablet 40 mg PO DAILY Depression 08/31/21 05/06/24 History quetiapine 100 mg tablet 100 mg PO DAILY Depression 08/31/21 05/06/24 History methocarbamol 750 mg tablet 750 mg PO TID PRN muscle spasm #42 05/24/23 05/06/24 Rx tabs atorvastatin 80 mg tablet 80 mg PO DAILY 07/21/23 05/06/24 History bupropion HCl 300 mg 24 hr tablet, 300 mg PO DAILY 07/21/23 05/06/24 History extended release carisoprodol 350 mg tablet 350 mg PO NEEDED PRN MUSCLE 07/21/23 05/06/24 History SPASMS enoxaparin 150 mg/mL subcutaneous 150 mg SQ DAILY 07/21/23 05/06/24 History syringe ergocalciferol (vitamin D2) 1,250 1,250 mcg PO WEEKLY 07/21/23 05/06/24 History mcg (50,000 unit) capsule estradiol 2 mg tablet 2 mg PO DAILY 07/21/23 05/06/24 History lamotrigine 100 mg tablet 100 mg PO DAILY 07/21/23 05/06/24 History polyethylene glycol 3350 17 17 g PO DAILY constipation #510 07/21/23 05/06/24 Rx gram/dose oral powder (Miralax) grams topiramate 200 mg tablet 200 mg PO DAILY 07/21/23 05/06/24 History linaclotide 290 mcg capsule 290 mcg PO DAILY #30 caps 10/30/23 05/06/24 Rx (Linzess) prednisone 20 mg tablet 20 mg PO BID #10 tabs 03/04/24 05/06/24 Rx New Prescriptions to Start Prescriptions: Allergies Allergy/AdvReac Type Severity Reaction Status Date / Time butorphanol (From STADOL) Allergy Unknown UNKNOWN Verified 10/30/23 10:36 Penicillins (PENICILLINS) Allergy Unknown UNKNOWN Verified 10/30/23 10:36 Assessment and Plan *Assessment and plan (1) Bilateral sacroiliitis: Status: Acute Category: Medical Code(s): M46.1 - Sacroiliitis, not elsewhere classified (2) Chronic pain: Status: Acute Category: Medical Code(s): G89.29 - Other chronic pain (3) Chronic back pain: Status: Acute Category: Medical Code(s): M54.9 - Dorsalgia, unspecified; G89.29 - Other chronic pain Plan I did discuss with the patient that we can try again with a psychological evaluation. Patient will be ordered this today and follow-up in clinic in 1 month. If the patient is deemed an appropriate candidate we will proceed forward with the trial at a later date. Patient has had chronic back pain for years that continues to progressively worsen. Patient has tried and failed oral medication, heat and ice, topicals, physical therapy, at home stretching and exercise for longer than 12 weeks as well as injection therapy. Patient has been instructed to contact the clinic with any concerns before the next appointment. Dr. Torrez has reviewed this note and agrees with this plan of care. This note was dictated using voice recognition software and make contain errors or omissions. All injections are used with Lidocaine, Bupivacaine and Depo Medrol. Occasionally urine drug screen is needed to verify patient's compliance with our office pain contract. This is ordered based off specific treatments related to chronic pain with the potential to abuse certain medications.
[2024-05-06 09:06] VITALS: BP 102/66; PULSE 87; RESP 18; O2SAT 98; BMI 21.1
== END 2024-05-06 23:59 | disposition home or self-care (01) ==
PROVIDERS: PCP Nurse Practitioner; Visit Provider Nurse Practitioner Family
DX: M46.1 Sacroiliitis, not elsewhere classified (principal); G89.29 Other chronic pain; M54.9 Dorsalgia, unspecified; Z96.659 Presence of unspecified artificial knee joint
CPT/HCPCS: 99212; G0463

== ENCOUNTER 2024-06-05 09:34 | Outpatient (POV) | payer MEDICARE, SELFPAY ==
[2024-06-05 09:36] VITALS: BP 96/59; PULSE 73; RESP 18; O2SAT 100; BMI 21.1
--- NOTE | 2024-06-05 09:54 | EXP.PAIN.SOA ---
[facility] Disclaimer: The information contained in this section may have been updated after the patient was seen, as this information can be updated by other users. Medical History (Updated 06/04/24 @ 16:20 by Riya Johnson APRN) Substance use disorder Depression Back pain DVT (deep venous thrombosis) HLD (hyperlipidemia) Surgical History History of vocal cord polypectomy History of shoulder surgery History of hysterectomy History of tubal ligation History of back surgery History of knee replacement Family History Other Colon cancer Family history of hypertension Family history of myocardial infarction Social History Smoking Status: Current every day smoker tobacco type: cigarettes packs per day: 1 second hand exposure: Yes alcohol intake: never substance use type: denies use current occupational status: other Travel in the last 8 weeks: None household members: spouse housing: house current occupational exposures/hazards: No caffeine: Yes PM Subjective & Objective Subjective Subjective:: Patient is a pleasant 54-year-old female who presents today for follow-up of psychological evaluation. Today she rates her pain a 5 out of 10. Patient states the pain is all in her low back and does radiate down into her left upper leg. Patient denies any new falls or injuries. Patient did have bilateral SI injections in April that did provide 100% relief. Patient does have a longstanding history of chronic sacroiliitis. Patient denies any other changes. Her Loi has been reviewed. Review of Systems: General: No recent weight changes, no fever, no sleep disturbances Respiratory: No cough, no shortness of air, no recurring pulmonary infections Cardiovascular/peripheral vascular: No chest pain, no palpitations, no edema, no shortness of breath Gastrointestinal: No new onset incontinence, normal bowel movements reported Genitourinary: No new onset incontinence Musculoskeletal: Low back pain Psychiatric: [Normal mood/affect] Neurological: [Denies weakness in extremities], [denies balance issues] Pain at rest (0-10 scale): 5 Objective Objective:: Physical Exam: General: Alert and oriented x3, no acute distress, pleasant and cooperative Lungs: Respirations even and unlabored, symmetrical chest expansion Eyes: PERRL Musculoskeletal: Flexion and extension of lumbar [spine] somewhat guarded secondary to pain Neurological: Speech clear, no gross sensory deficit Has patient had previous pain injection?: No Conservative treatment options previously tried: Home exercise plan Length of treatment: Longer than 12 we Meds Home Medications and Allergies Home Medications ?Medication ?Instructions ?Recorded ?Confirmed ?Type gabapentin 300 mg capsule 300 mg PO HS Pain 12/18/17 05/29/24 History tizanidine 4 mg tablet 4 mg PO BID unknown 12/18/17 05/29/24 History amitriptyline 150 mg tablet 150 mg PO DAILY sleep 06/25/18 05/29/24 History citalopram 40 mg tablet 40 mg PO DAILY Depression 08/31/21 05/29/24 History quetiapine 100 mg tablet 100 mg PO DAILY Depression 08/31/21 05/29/24 History methocarbamol 750 mg tablet 750 mg PO TID PRN muscle spasm #42 05/24/23 05/29/24 Rx tabs atorvastatin 80 mg tablet 80 mg PO DAILY 07/21/23 05/29/24 History bupropion HCl 300 mg 24 hr tablet, 300 mg PO DAILY 07/21/23 05/29/24 History extended release carisoprodol 350 mg tablet 350 mg PO NEEDED PRN MUSCLE 07/21/23 05/29/24 History SPASMS enoxaparin 150 mg/mL subcutaneous 150 mg SQ DAILY 07/21/23 05/29/24 History syringe ergocalciferol (vitamin D2) 1,250 1,250 mcg PO WEEKLY 07/21/23 05/29/24 History mcg (50,000 unit) capsule estradiol 2 mg tablet 2 mg PO DAILY 07/21/23 05/29/24 History lamotrigine 100 mg tablet 100 mg PO DAILY 07/21/23 05/29/24 History polyethylene glycol 3350 17 17 g PO DAILY constipation #510 07/21/23 05/29/24 Rx gram/dose oral powder (Miralax) grams topiramate 200 mg tablet 200 mg PO DAILY 07/21/23 05/29/24 History linaclotide 290 mcg capsule 290 mcg PO DAILY #30 caps 10/30/23 05/29/24 Rx (Linzess) prednisone 20 mg tablet 20 mg PO BID #10 tabs 03/04/24 05/29/24 Rx New Prescriptions to Start Prescriptions: Allergies Allergy/AdvReac Type Severity Reaction Status Date / Time butorphanol (From STADOL) Allergy Unknown UNKNOWN Verified 05/29/24 12:06 Penicillins (PENICILLINS) Allergy Unknown UNKNOWN Verified 05/29/24 12:06 Assessment and Plan *Assessment and plan (1) Bilateral sacroiliitis: Status: Acute Category: Medical Code(s): M46.1 - Sacroiliitis, not elsewhere classified (2) Chronic back pain: Status: Acute Qualifiers: Back pain location: low back pain Back pain laterality: left Sciatica presence: with sciatica Sciatica laterality: sciatica of left side Qualified Code(s): M54.42 - Lumbago with sciatica, left side; G89.29 - Other chronic pain Category: Medical Code(s): M54.9 - Dorsalgia, unspecified; G89.29 - Other chronic pain Plan Patient was reviewed over her psychological evaluation and I did review over mack points of this note that did specifically deem her an inappropriate patient for this device. Patient has always been very appropriate in our office and I have never seen any red flags regarding severe depression or anxiety. Patient does have depression and anxiety but it does appear to be well-managed when she has been to our office. Patient does have daily pain that does affect her emotional state however from our aspect it does not seem to be overbearing to the point that she cannot function when she comes in for our visits. We will continue to monitor her progress at our appointments. Patient was counseled that I would recommend her to take a copy of the psychological evaluation to her primary care and to review over each of these items and see if there needs to be some adjustment to her medication or seeing a therapist on a regular basis to see if this also is helpful. Patient was also counseled that we can fax a copy of this note to her PCP. Patient has done well with injections at our office however some are more temporary than others. At this time she does not need additional injection therapy and feels like currently it is somewhat more manageable. I did discuss with the patient that I will have her back in about 6 weeks for reevaluation of symptoms. She agrees with this plan of care. Patient has been instructed to contact the clinic with any concerns before the next appointment. Dr. Torrez has reviewed this note and agrees with this plan of care. This note was dictated using voice recognition software and make contain errors or omissions. All injections are used with Lidocaine, Bupivacaine and dexamethasone. Occasionally urine drug screen is needed to verify patient's compliance with our office pain contract. This is ordered based off specific treatments related to chronic pain with the potential to abuse certain medications.
== END 2024-06-05 23:59 | disposition home or self-care (01) ==
LOC: SC.PAIN 09:36
PROVIDERS: PCP Nurse Practitioner; Visit Provider Nurse Practitioner Family
DX: M46.1 Sacroiliitis, not elsewhere classified (principal); M54.42 Lumbago with sciatica, left side; G89.29 Other chronic pain; Z96.659 Presence of unspecified artificial knee joint
CPT/HCPCS: 99212; G0463

== ENCOUNTER 2024-07-26 14:52 | Outpatient (POV) | payer MEDICARE, SELFPAY ==
--- OUTSIDE RECORDS SUMMARY | 2024-07-26 14:54 | XMS_ITS | Clinical Summary ---
Author Organization [facility] Address [facility] [place] [address] Care Team Providers Care Prison Guard Supervisor Name Role Phone Unknown, Attending Provider Primary Care Provide r Unavailable Source Comments This information has been disclosed to you from confidential records protectedfrom disclosure by state law. You shall make no further disclosure of thisinformation without the specific, written, and informed release of theindividual to whom it pertains, or as otherwise permitted by law. A generalauthorization for the release of medical or other information is not sufficientfor the purposes of therelease of HIV test results or diagnoses. [id number] Health Immunizations Immunization Administration Dates Next Due Pneumococcal polysaccharide, 23-valent 2 Social History Tobacco Use Types Packs/Day Years Used Date Smoking Tobacco: Never Assessed Comments Unknown Sex and Gender Information Value Date Recorded Sex Assigned at Not on file Legal Sex Female 11:54 PM EST Gender Identity Not on file Sexual Orientation Not on file Plan of Treatment Not on file Care Teams Prison Guard Supervisor Relationship Specialty Start Date End Date Unknown, Attending Provider PCP - General 08/26/11
--- OUTSIDE RECORDS SUMMARY | 2024-07-26 14:54 | XMS_ITS | Clinical Summary ---
Author Organization [facility] [employer] [facility] Address [address] [place] [address] Care Team Providers Care Plastic Injection Mold Maker Name Role Phone Unavailable Primary Care Provider Unavailabl e Allergies Active Allergy Reactions Criticality Noted Date Comments Penicillin 11/03/2021 Butorphanol 11/03/2021 Medications enoxaparin (LOVENOX) 150 mg/mL injection Inject 140 mg subcutaneously. 2 Active atorvastatin (LIPITOR) 80 MG tablet Take 1 tablet (80 mg total) by mouth. 2 Active amitriptyline (ELAVIL) 150 MG tablet Take 1 tablet (150 mg total) by mouth. Active gabapentin (NEURONTIN) 300 MG capsule Take by mouth. Acti ve methylPREDNISol one (MEDROL DOSEPACK) 4 mg tabletIndicatio ns:Posterior tibial tendonitis, left follow package directions. 21 tablet 3 Active Additional Information Patient not taking.Reported on 04/22/2024 estradioL (ESTRACE) 2 MG tablet Take 1 tablet (2 mg total) by mouth. 3 Active clonazePAM (KlonoPIN) 0.5 MG tablet Take 1 tablet (0.5 mg total) by mouth 3 (three) times daily as needed. Max Daily Amount: 1.5 mg 5 Active QUEtiapine (SEROquel) 100 MG tablet Take 3 tablets (300 mg total) by mouth nightly. 4 Active topiramate (TOPAMAX) 200 MG tablet Take 1 tablet (200 mg total) by mouth 2 (two) times daily. Active Family History Medical History Relation Name Comments Cancer Maternal Aunt Maternal Aunt Breast Cancer Maternal Grandmother Maternal Grandmother Colon Relation Name Status Comments Maternal Aunt Maternal Aunt Maternal Grandmother Maternal Grandmother Social History Tobacco Use Types Packs/Day Years Used Date Smoking Tobacco: Every Day Cigarettes 1 15 Smokeless Tobacco: Never Tobacco Cessation:Ready to Q uit: Not Asked; Counseling Given: Not Answered Alcohol Use Standard Drinks/Week Comments Not Currently 0 (1 standard drink = 0.6 oz pur e alcohol) Interpersonal Safety Answer Date Record ed Family or friends hurt you Not on file 02/24 Family or friends insult you Not on file 01/2024 Family or friends threaten you Not on file 0 02/24/2023 Family or friends scream or curse at you Not on file 02/24/2023 Housing Stability Answer Date Recorded Living situation today Not on file Living situation problems Not on file 2023 Family and Community Support Answer Reymundo e Recorded Help with Day to Day Activities Not on file 02/24/2023 Feeling Lonely or Isolated Not on file 02/24 Educational Attainment Answer Date Vivek rded Speak language other than Dominican at home Not on file 02/24/2023 Want help with school or training Not on file 02/24/2023 Depression Answer Date Recorded PHQ-2 Risk Not on file 02/24/2023 Disabilities Answer Date Recorded Difficulty concentrating Not on file 024 Difficulty doing errands alone Not on file 0 02/24/2023 Substance Use Answer Date Recorded Used prescription meds for non-medical reasons N ot on file 02/24/2023 Used illegal drugs past 12 months Not on file 02/24/2023 Comments Unknown Sex and Gender Information Value Date Recorded Sex Assigned at Not on file Legal Sex Female 6:19 PM CDT Gender Identity Not on file Sexual Orientation Not on file Last Filed Vital Signs Vital Sign Reading Time Taken Comments Blood Pressure 96/65 04/22/2024 3:48 PM EDT Pulse 76 04/22/2024 3:48 PM EDT Temperature - - Respiratory Rate 19 07/16/2021 3:16 PM EDT Oxygen Saturation - - Inhaled Oxygen Concentration - - Weight 61.2 kg (135 lb) 04/22/2024 3:48 PM EDT Height 170.2 cm (5' 7 ) 04/22/2024 3:48 PM EDT Body Mass Index 21.14 04/22/2024 3:48 PM EDT Plan of Treatment Health Maintenance Due Date Last Done Comments CT Colonography 1968 Colonoscopy 1968 Colorectal Cancer Screening 1968 FOBT/FIT 1968 Fit-DNA (Cologuard) 1968 Sigmoidoscopy 1968 Depression Screening (12+) 1980 HIV Screening 05/09/1983 Hepatitis C Screening 1986 DTAP/TDAP/TD VACCINES (1 - Tdap) 05/09/1987 Pap Smear 1989 Breast Cancer Screening 2008 Pneumococcal 50+ years (2 of 2 - PCV) 08/26/2012 Lipid Panel 2013 Shingles Vaccine (Zoster) (1 of 2) 2018 Medicare Initial AWV [id number] 02/14/2023 COVID-19 VACCINE ( season) 2023 11/12/2020, 06/05/2020, 05/07/2020 Influenza Vaccine (Season Ended) 2024 Tobacco Cessation Counseling and Screening (12+) 04/22/2025 04/22/2024 Insurance [employer] MEDICARE HMO
--- OUTSIDE RECORDS SUMMARY | 2024-07-26 14:54 | XMS_ITS | Clinical Summary ---
Author Organization Healthcare Address [address] [place] [address] Care Team Providers Care Completion Engineer Name Role Phone Unavailable Primary Care Provider Unavailabl e Family History Medical History Relation Name Comments Blood clots Other 1 Stroke Other 2 Diabetes Other 3 Other cancer Other 4 Heart attack Other 5 Relation Name Status Comments Other 1 Other 2 Other 3 Other 4 Other 5 Social History Tobacco Use Types Packs/Day Years Used Date Smoking Tobacco: Every Day Comments Unknown Sex and Gender Information Value Date Recorded Sex Assigned at Not on file Legal Sex Female 7:37 PM EDT Gender Identity Not on file Sexual Orientation Not on file Last Filed Vital Signs Vital Sign Reading Time Taken Comments Blood Pressure 114/77 08/03/2018 10:15 AM EDT Pulse 93 08/03/2018 10:15 AM EDT Temperature 36.5 C (97.7 F) 05/04/2018 10:45 AM EDT Respiratory Rate 20 04/10/2018 10:56 AM EST Oxygen Saturation - - Inhaled Oxygen Concentration - - Weight 82.8 kg (182 lb 9 oz) 08/03/2018 10:15 AM EDT Height 170.2 cm (5' 7 ) 08/03/2018 10:15 AM EDT Body Mass Index 28.59 08/03/2018 10:15 AM EDT Plan of Treatment Not on file
--- OUTSIDE RECORDS SUMMARY | 2024-07-26 14:54 | XMS_ITS | Referral Summary ---
Author Organization [employer] [facility] Address [address] [place] [address] Care Team Providers Care Lidar Analyst Name Role Phone Unavailable Primary Care Provider [...] by mouth 2 (two) times daily. Active Social History Tobacco Use Types Packs/Day Years [...] Date Vivek rded Speak language other than South African at home Not on file 02/24/2023 Want [...] 04/22/2024 3:48 PM EDT Plan of Treatment Not on file Insurance [employer] MEDICARE HMO
[2024-07-26 15:21] VITALS: BP 110/61; PULSE 85; RESP 14; O2SAT 97; BMI 21.1
--- NOTE | 2024-07-26 16:19 | EXP.PAIN.SOA ---
[facility] Disclaimer: The information contained in this section may have been updated after the patient was seen, as this information can be updated by other users. Medical History (Updated 07/26/24 @ 16:20 by Clementine Somers APRN) Substance use disorder Depression Back pain DVT (deep venous thrombosis) HLD (hyperlipidemia) Surgical History History of vocal cord polypectomy History of shoulder surgery History of hysterectomy History of tubal ligation History of back surgery History of knee replacement Family History Other Colon cancer Family history of hypertension Family history of myocardial infarction Social History Smoking Status: Current every day smoker tobacco type: cigarettes packs per day: 1 second hand exposure: Yes alcohol intake: never substance use type: denies use current occupational status: other Travel in the last 8 weeks?: None household members: spouse housing: house current occupational exposures/hazards: No caffeine: Yes PM Subjective & Objective Subjective Subjective:: Patient is a pleasant 54-year-old female who presents today for worsening low back pain along the right side and into her right hip. Patient does rated a 7 out of 10. Patient states that this is very similar to the pain she has had at her low back however on the side of her hip does feel like that is new her within the last few months. Patient does state it is worse with laying down or prolonged positioning. Patient states that she has a lot of trouble getting out of of bed due to this pain and it is interfering with her ability perform activities of daily living such as cooking and cleaning. Patient did previously have bilateral SI injections in April that did provide 100% relief and did work up until just recently. Patient is interested in proceeding forward with additional injections. She has tried and continued conservative therapy with no additional improvement. Her Loi has been reviewed and is appropriate. Review of Systems: General: No recent weight changes, no fever, no sleep disturbances Respiratory: No cough, no shortness of air, no recurring pulmonary infections Cardiovascular/peripheral vascular: No chest pain, no palpitations, no edema, no shortness of breath Gastrointestinal: No new onset incontinence, normal bowel movements reported Genitourinary: No new onset incontinence Musculoskeletal: Low back pain, right-sided, right hip pain Psychiatric: [Normal mood/affect] Neurological: [Denies weakness in extremities], [denies balance issues] Pain at rest (0-10 scale): 7 Objective Objective:: Physical Exam: General: Alert and oriented x3, no acute distress, pleasant and cooperative Lungs: Respirations even and unlabored, symmetrical chest expansion Eyes: PERRL Musculoskeletal: Flexion and extension of lumbar [spine] somewhat guarded secondary to pain, [antalgic gait noted] point tenderness along right SI and right greater trochanteric bursa with positive right Guy's, Luana's, Gaenslen's, compression and distraction exam Neurological: Speech clear, no gross sensory deficit Has patient had previous pain injection?: No Conservative treatment options previously tried: Home exercise plan Length of treatment: Longer than 12 weeks Meds Home Medications and Allergies Home Medications ?Medication ?Instructions ?Recorded ?Confirmed ?Type gabapentin 300 mg capsule 300 mg PO HS Pain 12/18/17 07/26/24 History tizanidine 4 mg tablet 4 mg PO BID unknown 12/18/17 07/26/24 History amitriptyline 150 mg tablet 150 mg PO DAILY sleep 06/25/18 07/26/24 History citalopram 40 mg tablet 40 mg PO DAILY Depression 08/31/21 07/26/24 History quetiapine 100 mg tablet 100 mg PO DAILY Depression 08/31/21 07/26/24 History methocarbamol 750 mg tablet 750 mg PO TID PRN muscle spasm #42 05/24/23 07/26/24 Rx tabs atorvastatin 80 mg tablet 80 mg PO DAILY 07/21/23 07/26/24 History bupropion HCl 300 mg 24 hr tablet, 300 mg PO DAILY 07/21/23 07/26/24 History extended release carisoprodol 350 mg tablet 350 mg PO NEEDED PRN MUSCLE 07/21/23 07/26/24 History SPASMS enoxaparin 150 mg/mL subcutaneous 150 mg SQ DAILY 07/21/23 07/26/24 History syringe ergocalciferol (vitamin D2) 1,250 1,250 mcg PO WEEKLY 07/21/23 07/26/24 History mcg (50,000 unit) capsule estradiol 2 mg tablet 2 mg PO DAILY 07/21/23 07/26/24 History lamotrigine 100 mg tablet 100 mg PO DAILY 07/21/23 07/26/24 History polyethylene glycol 3350 17 17 g PO DAILY constipation #510 07/21/23 07/26/24 Rx gram/dose oral powder (Miralax) grams topiramate 200 mg tablet 200 mg PO DAILY 07/21/23 07/26/24 History linaclotide 290 mcg capsule 290 mcg PO DAILY #30 caps 10/30/23 07/26/24 Rx (Linzess) New Prescriptions to Start Prescriptions: Allergies Allergy/AdvReac Type Severity Reaction Status Date / Time butorphanol (From STADOL) Allergy Unknown UNKNOWN Verified 05/29/24 12:06 Penicillins (PENICILLINS) Allergy Unknown UNKNOWN Verified 05/29/24 12:06 Assessment and Plan *Assessment and plan (1) Greater trochanteric bursitis of right hip: Status: Acute Category: Medical Code(s): M70.61 - Trochanteric bursitis, right hip (2) Sacroiliitis: Status: Acute Category: Medical Code(s): M46.1 - Sacroiliitis, not elsewhere classified Plan Patient is experiencing worsening pain along her low back and right hip with limited range of motion. Patient did have point tenderness along her right SI and right greater trochanteric bursa during today's exam. I did discuss with patient that I do believe she would benefit from a right SI and right greater trochanteric bursa injection. Risk and benefits were discussed with the patient and she would like to proceed forward with this plan of care. Patient has had this pain for longer than a year unrelieved with conservative measures such as oral medication, heat and ice, topicals, at home stretching exercise for longer than 12 weeks.Patient will be scheduled for a right SI and right bursa injection under fluoroscopy. This will be a therapeutic SI injection with less than 1.5 mL of solution to be injected. Patient may be a candidate of SI fusion in future. We will continue to monitor this. Patient has been instructed to contact the clinic with any concerns before the next appointment. Dr. Torrez has reviewed this note and agrees with this plan of care. This note was dictated using voice recognition software and make contain errors or omissions. All injections are used with Lidocaine, Bupivacaine and dexamethasone unless diagnostic in which case there is no steroids injected. Occasionally urine drug screen is needed to verify patient's compliance with our office pain contract. This is ordered based off specific treatments related to chronic pain with the potential to abuse certain medications.
== END 2024-07-26 23:59 | disposition home or self-care (01) ==
LOC: SC.PAIN 14:53
PROVIDERS: PCP Nurse Practitioner; Visit Provider Nurse Practitioner Family
DX: M70.61 Trochanteric bursitis, right hip (principal); M46.1 Sacroiliitis, not elsewhere classified
CPT/HCPCS: 99212; G0463

== ENCOUNTER 2024-08-05 08:39 | Outpatient (POV) | payer MEDICARE, SELFPAY ==
--- OUTSIDE RECORDS SUMMARY | 2024-08-05 08:45 | XMS_ITS | Clinical Summary ---
Author Organization [employer] [facility] Address [address] [place] [address] Care Team Providers Care Pulmonary Function Technologist Name Role Phone Unavailable Primary Care Provider [...] Date Vivek rded Speak language other than Macedonian at home Not on file 02/24/2023 Want [...]
--- OUTSIDE RECORDS SUMMARY | 2024-08-05 08:45 | XMS_ITS | Clinical Summary ---
Author Organization Healthcare Address [address] [place] [address] Care Team Providers Care Metal Extrusion Supervisor Name Role Phone Unavailable Primary Care Provider [...]
--- OUTSIDE RECORDS SUMMARY | 2024-08-05 08:45 | XMS_ITS | Clinical Summary ---
Author Organization [facility] Address [facility] [place] [address] Care Team Providers Care Chemic Mangler Name Role Phone Unknown, Attending Provider Primary [...] therelease of HIV test results or diagnoses. [id number] Health Immunizations Immunization Administration Dates [...] of Treatment Not on file Care Teams Chemic Mangler Relationship Specialty Start Date End Date Unknown, Attending Provider PCP - General 08/26/11
--- OUTSIDE RECORDS SUMMARY | 2024-08-05 08:45 | XMS_ITS | Referral Summary ---
Author Organization [employer] [facility] Address [address] [place] [address] Care Team Providers Care Project Planner Name Role Phone Unavailable Primary Care Provider [...] Date Vivek rded Speak language other than Salvadorean at home Not on file 02/24/2023 Want [...]
--- NOTE | 2024-08-05 09:15 | EXP.PAIN.SOA ---
[facility] Disclaimer: The information contained in this section may have been updated after the patient was seen, as this information can be updated by other users. Medical History (Updated 07/26/24 @ 16:20 by Clementine Somers APRN) Substance use disorder Depression Back pain DVT (deep venous thrombosis) HLD (hyperlipidemia) Surgical History History of vocal cord polypectomy History of shoulder surgery History of hysterectomy History of tubal ligation History of back surgery History of knee replacement Family History Other Colon cancer Family history of hypertension Family history of myocardial infarction Social History Smoking Status: Current every day smoker tobacco type: cigarettes packs per day: 1 second hand exposure: Yes alcohol intake: never substance use type: denies use current occupational status: other Travel in the last 8 weeks?: None household members: spouse housing: house current occupational exposures/hazards: No caffeine: Yes Have you lived/traveled outside [place] in past 30 days?: No Contact w/someone who lives/traveled outside [place] past 30 days?: No Exposure to someone with infectious disease in past 14 days?: No Do you have a fever (greater than 100.4 F or 38 C)?: No Have you tested positive for COVID-19?: No Exposed to someone with COVID-19 in past 14 days?: No Do you have a sore throat?: No Do you have a cough?: No Do you have any weakness?: No Do you have any diarrhea?: No Are you experiencing any unusual bleeding?: No Do you have any muscle aches/pain?: No Do you have any abdominal pain?: No Are you experiencing loss of taste or smell?: No PM Subjective & Objective Subjective Subjective:: Patient is a pleasant 54-year-old female who presents today for follow-up. Patient states she is still having the same pain she saw last for the other week and is scheduled for her injection tomorrow along her right hip. Patient does state that she is still having some they are on the left as well and it goes down the side. Patient states it is worse with increased activity. Patient denies any new falls or injuries. Her Loi has been reviewed and is appropriate. Review of Systems: General: No recent weight changes, no fever, no sleep disturbances Respiratory: No cough, no shortness of air, no recurring pulmonary infections Cardiovascular/peripheral vascular: No chest pain, no palpitations, no edema, no shortness of breath Gastrointestinal: No new onset incontinence, normal bowel movements reported Genitourinary: No new onset incontinence Musculoskeletal: Left hip pain, low back pain Psychiatric: [Normal mood/affect] Neurological: [Denies weakness in extremities], [denies balance issues] Pain at rest (0-10 scale): 7 Objective Objective:: Physical Exam: General: Alert and oriented x3, no acute distress, pleasant and cooperative Lungs: Respirations even and unlabored, symmetrical chest expansion Eyes: PERRL Musculoskeletal: Flexion and extension of lumbar [spine] somewhat guarded secondary to pain, [antalgic gait noted] point tenderness along left SI and left bursa with positive left Guy's, Luana's, Gaenslen's, compression and distraction exam Neurological: Speech clear, no gross sensory deficit Has patient had previous pain injection?: No Conservative treatment options previously tried: Home exercise plan Length of treatment: Longer than 12 weeks Meds Home Medications and Allergies Home Medications ?Medication ?Instructions ?Recorded ?Confirmed ?Type gabapentin 300 mg capsule 300 mg PO HS Pain 12/18/17 07/26/24 History tizanidine 4 mg tablet 4 mg PO BID unknown 12/18/17 07/26/24 History amitriptyline 150 mg tablet 150 mg PO DAILY sleep 06/25/18 07/26/24 History citalopram 40 mg tablet 40 mg PO DAILY Depression 08/31/21 07/26/24 History quetiapine 100 mg tablet 100 mg PO DAILY Depression 08/31/21 07/26/24 History methocarbamol 750 mg tablet 750 mg PO TID PRN muscle spasm #42 05/24/23 07/26/24 Rx tabs atorvastatin 80 mg tablet 80 mg PO DAILY 07/21/23 07/26/24 History bupropion HCl 300 mg 24 hr tablet, 300 mg PO DAILY 07/21/23 07/26/24 History extended release carisoprodol 350 mg tablet 350 mg PO NEEDED PRN MUSCLE 07/21/23 07/26/24 History SPASMS enoxaparin 150 mg/mL subcutaneous 150 mg SQ DAILY 07/21/23 07/26/24 History syringe ergocalciferol (vitamin D2) 1,250 1,250 mcg PO WEEKLY 07/21/23 07/26/24 History mcg (50,000 unit) capsule estradiol 2 mg tablet 2 mg PO DAILY 07/21/23 07/26/24 History lamotrigine 100 mg tablet 100 mg PO DAILY 07/21/23 07/26/24 History polyethylene glycol 3350 17 17 g PO DAILY constipation #510 07/21/23 07/26/24 Rx gram/dose oral powder (Miralax) grams topiramate 200 mg tablet 200 mg PO DAILY 07/21/23 07/26/24 History linaclotide 290 mcg capsule 290 mcg PO DAILY #30 caps 10/30/23 07/26/24 Rx (Linzess) New Prescriptions to Start Prescriptions: Allergies Allergy/AdvReac Type Severity Reaction Status Date / Time butorphanol (From STADOL) Allergy Unknown UNKNOWN Verified 05/29/24 12:06 Penicillins (PENICILLINS) Allergy Unknown UNKNOWN Verified 05/29/24 12:06 Assessment and Plan *Assessment and plan (1) Bilateral sacroiliitis: Status: Acute Category: Medical Code(s): M46.1 - Sacroiliitis, not elsewhere classified (2) Chronic back pain: Status: Acute Qualifiers: Back pain location: low back pain Back pain laterality: left Sciatica presence: with sciatica Sciatica laterality: sciatica of left side Qualified Code(s): M54.42 - Lumbago with sciatica, left side; G89.29 - Other chronic pain Category: Medical Code(s): M54.9 - Dorsalgia, unspecified; G89.29 - Other chronic pain Plan I did discuss with the patient that I am hopeful that she does have improvement on the left side when she has her right SI and right bursa injection that she is scheduled for tomorrow. She was counseled however if it does not improve we will definitely see about getting additional injections for this. Patient will return to our clinic 2 weeks after her injection tomorrow. Patient agrees with this plan of care. Patient has been instructed to contact the clinic with any concerns before the next appointment. Dr. Torrez has reviewed this note and agrees with this plan of care. This note was dictated using voice recognition software and make contain errors or omissions. All injections are used with Lidocaine, Bupivacaine and dexamethasone. Occasionally urine drug screen is needed to verify patient's compliance with our office pain contract. This is ordered based off specific treatments related to chronic pain with the potential to abuse certain medications.
[2024-08-05 10:51] VITALS: BP 115/42; PULSE 75; RESP 12; O2SAT 99; BMI 21.1
== END 2024-08-05 23:59 | disposition home or self-care (01) ==
LOC: SC.PAIN 08:40
PROVIDERS: PCP Nurse Practitioner; Visit Provider Nurse Practitioner Family
DX: M46.1 Sacroiliitis, not elsewhere classified (principal); M54.42 Lumbago with sciatica, left side; G89.29 Other chronic pain; Z98.890 Other specified postprocedural states
CPT/HCPCS: 99212; G0463